=== PATIENT | female | born 1940 | race Caucasian/White ===

== ENCOUNTER 2024-01-04 11:46 | Inpatient (IN) | payer MEDICARE, OTHER ==
--- NOTE | 2024-01-04 12:24 | ED ---
Back Pain HPI - General Chief Complaint: Back Pain/Injury Stated Complaint: Fall Time Seen by Provider: 01/04/24 12:06 Source: patient, family, RN notes reviewed Limitations: no limitations - History of Present Illness Initial Comments: 83-year-old female presenting with back pain status post mechanical fall 3 weeks ago. States she lost her balance and fell onto her buttocks. She did not have immediate pain and was ambulatory after the incident. However, since the fall, patient has had increasing pain in the lower back radiating down the right leg and difficulty ambulating. She also reports that her right foot is numb and tingly. Daughter is present upon examination and states that patient was able to walk without assisting devices before the fall, however began to use a walker after the fall, and has now progressed to difficulty even with the walker. Patient lives with her daughter. They are very concerned about falls at this time. Denies other injuries or complaints at this time. Denies blood thinners. Denies bowel or bladder incontinence. - Related Data Allergies Allergy/AdvReac Type Severity Reaction Status Date / Time Penicillins Allergy Rash/Hives Verified 01/04/24 11:54 Review of Systems ROS Statement: Those systems with pertinent positive or pertinent negative responses have been documented in the HPI. ROS Other: All systems not noted in ROS Statement are negative. Past Medical History Past Medical History: Asthma, Thyroid Disorder Additional Past Medical History / Comment(s): Chronic back pain. History of Any Multi-Drug Resistant Organisms: None Reported Past Surgical History: No Surgical Hx Reported Past Psychological History: No Psychological Hx Reported Smoking Status: Never smoker Past Alcohol Use History: Occasional Past Drug Use History: None Reported General Exam Limitations: no limitations General appearance: alert, in no apparent distress Head exam: Present: atraumatic, normocephalic, normal inspection Eye exam: Present: normal appearance, PERRL, EOMI. Absent: scleral icterus, conjunctival injection, periorbital swelling Respiratory exam: Present: normal lung sounds bilaterally. Absent: respiratory distress, wheezes, rales, rhonchi, stridor Cardiovascular Exam: Present: regular rate, normal rhythm, normal heart sounds. Absent: systolic murmur, diastolic murmur, rubs, gallop, clicks Extremities exam: Present: normal inspection, full ROM, normal capillary refill. Absent: tenderness, pedal edema, joint swelling, calf tenderness Back exam: Present: normal inspection, full ROM, tenderness (Tenderness along lumbar portion of spine), other (Full strength and sensation of bilateral hips. No saddle anesthesia) Neurological exam: Present: alert, oriented X3, CN II-XII intact Psychiatric exam: Present: normal affect, normal mood Skin exam: Present: warm, dry, intact, normal color. Absent: rash Course Vital Signs 01/04/24 01/04/24 01/04/24 11:51 14:10 17:31 Temperature 98.6 F 98 F 98.1 F Pulse Rate 83 70 82 Respiratory 20 18 18 Rate Blood Pressure 123/69 120/80 135/83 O2 Sat by Pulse 96 97 96 Oximetry Medical Decision Making - Medical Decision Making Was pt. sent in by a medical professional or institution ([facility], [facility], urgent care, hospital, or half-way...) When possible be specific @ -No Did you speak to anyone other than the patient for history (EMS, parent, family, police, friend...)? What history was obtained from this source @ -Patient's daughter supplemented history Did you review nursing and triage notes (agree or disagree)? Why? @ -I reviewed and agree with nursing and triage notes Were old charts reviewed (outside hosp., previous admission, EMS record, old EKG, old radiological studies, urgent care reports/EKG's, half-way records)? Report findings @ -No old charts were reviewed Differential Diagnosis (chest pain, altered mental status, abdominal pain women, abdominal pain men, vaginal bleeding, weakness, fever, dyspnea, syncope, headache, dizziness, GI bleed, back pain, seizure, CVA, palpatations, mental health, musculoskeletal)? @ -Differential Musculoskeletal Muscular strain, contusion, ligament sprain, fracture, arthritis, septic arthritis, bursitis, cellulitis, muscle spasm, nerve compression, DVT, arterial occlusion, herpes zoster, electrolyte abnormality, tumor.... This is not meant to be in all inclusive list EKG interpreted by me (3pts min.). @ -None X-rays interpreted by me (1pt min.). @ -X-ray of lower back reveals severe compression deformity of L1 CT interpreted by me (1pt min.). @ -None done U/S interpreted by me (1pt. min.). @ -None done What testing was considered but not performed or refused? (CT, X-rays, U/S, labs)? Why? @ -None What meds were considered but not given or refused? Why? @ -None Did you discuss the management of the patient with other professionals (professionals i.e. , PA, [facility], lab, RT, psych nurse, bilingual social worker, bridge engineer, teacher, third officer, ed case manager)? Give summary @ -I spoke with Rudolph from orthopedics who recommends patient is admitted to medicine with orthopedic consult at this time due to patient's pain poorly controlled and she is at risk for falls and uncomfortable being discharged at this time. I then spoke with Sami from [facility] who accepts admission at this time. Was smoking cessation discussed for >3mins.? @ -No Was critical care preformed (if so, how long)? @ -No Were there social determinants of health that impacted care today? How? (Homeles sness, low income, unemployed, alcoholism, drug addiction, transportation, low edu. Level, literacy, decrease access to med. care, fpc, rehab)? @ -No Was there de-escalation of care discussed even if they declined (Discuss DNR or withdrawal of care, Hospice)? DNR status @ -No What co-morbidities impacted this encounter? (DM, HTN, Smoking, COPD, CAD, Cancer, CVA, ARF, Chemo, Hep., AIDS, mental health diagnosis, sleep apnea, morbid obesity)? @ -None Was patient admitted / discharged? Hospital course, mention meds given and route, prescriptions, significant lab abnormalities, going to OR and other pertinent info. @ -Patient was admitted. Patient was seen and evaluated for low back pain and difficulty ambulating status post mechanical fall 3 weeks ago. Patient is neurovascularly intact. X-ray reveals severe compression deformity of L1. Patient is given IV morphine which improved symptoms. Case was discussed with Rudolph from orthopedics who recommends patient is admitted to medicine with orthopedic consult at this time. I then spoke with Laura from [facility] who accepts admission at this time. Patient and daughter agree to be admitted at this time as they are uncomfortable being discharged as patient is unable to ambulate and they are concerned for fall. Case was discussed with my attending Dr. Smith. Undiagnosed new problem with uncertain prognosis? @ -No Drug Therapy requiring intensive monitoring for toxicity (Heparin, Nitro, Insulin, Cardizem)? @ -No Were any procedures done? @ -No Diagnosis/symptom? @ -Severe compression deformity of L1 Acute, or Chronic, or Acute on Chronic? @ -Acute Uncomplicated (without systemic symptoms) or Complicated (systemic symptoms)? @ -Uncomplicated Side effects of treatment? @ -No Exacerbation, Progression, or Severe Exacerbation? @ -No Poses a threat to life or bodily function? How? (Chest pain, [place], [place], pneumonia, PE, COPD, DKA, ARF, appy, cholecystitis, CVA, Diverticulitis, Homicidal, Suicidal, threat to staff... and all critical care pts) @ -Low likelihood Disposition Clinical Impression: Compression deformity of vertebra Disposition: ADMITTED IP TO THIS HOSP Condition: Stable Referrals: Pravin Tatum DO [Primary Care Provider] - 1-2 days Time of Disposition: 17:22
--- NOTE | 2024-01-04 13:44 | XR ---
EXAMINATION TYPE: XR lumbar spine 2 or 3V DATE OF EXAM: 01/04/2024 COMPARISON: None HISTORY: Low back injury TECHNIQUE: Lumbar spine FINDINGS: There are 5 lumbar-type vertebral bodies. The pedicles are intact. There is severe compress ion deformity of L1. Posterior wall displacement is not evident. Some endplate spurring may be presen t to. Posterior disc space narrowing is present L3-4 L4-5. IMPRESSION: 1. Severe compression deformity L1 of indeterminate age. She wall displacement clearly evident altho ugh some L1-2 mild endplate spurring may be present.
[2024-01-04] MEDS: MORPHINE SULFATE 4 MG/ML SYRINGE IM STA (14:17)
[2024-01-04] MEDS ORDERED: NALOXONE 0.4 MG/ML 1 ML VIAL IV PRN (17:17)
[2024-01-04] MEDS: MORPHINE SULFATE 4 MG/ML SYRINGE IV PRN (18:58)
[2024-01-05] MEDS: ACETAMINOPHEN TAB 325 MG TAB PO PRN (02:13)
--- NOTE | 2024-01-05 10:38 | P.CNOR ---
History of Present Illness - [facility] Consult date: 01/05/24 Requesting physician: Ann Pool Consult reason: other (L1 compression deformity) History of present illness: Patient is an 83-year-old female who presents to the emergency department ye sterday due to difficulty with ambulation back pain. Patient had a fall at home about 3 weeks ago and over the past couple weeks she has had increasing low back pain and difficulty with ambulation. Orthopedics was consulted due to L1 vertebral compression fracture. Patient was seen this morning on 4 S. Patient states a few weeks ago she lost her balance and fell onto her buttocks. Patient denies any immediate pain over the first week. However, over the past couple weeks patient has had increasing pain in the low back with radiation of pain down the right leg and difficulty with ambulation. Patient says she has had even had difficulty ambulating with a walker over the past couple weeks. Patient denies any bowel or bladder incontinence. Patient denies any previous orthopedic spine surgery. Patient states about 40 years ago she did fall landing on the ice and at that point she found out that she did break couple bones in her back. Patient says she's had a hip replacement about 20 years ago. Patient denies any other orthopedic surgical history. Patient denies chest pain, fever, shortness breath, nausea, vomiting, change in vision. Past Medical History Past Medical History: Asthma, Cancer, COPD, Fibromyalgia, Hearing Disorder / Deafness, Thyroid Disorder Additional Past Medical History / Comment(s): Chronic back pain. Hearing aids, Breast cancer, Right side lympnodes removed, History of Any Multi-Drug Resistant Organisms: None Reported Past Surgical History: Breast Surgery, Hysterectomy, Joint Replacement Additional Past Surgical History / Comment(s): Right hip replacement, right side breast cancer and lynphnodes removed, Past Anesthesia/Blood Transfusion Reactions: No Reported Reaction Past Psychological History: No Psychological Hx Reported Smoking Status: Never smoker Past Alcohol Use History: Occasional Past Drug Use History: None Reported Medications and Allergies Home Medications Medication Instructions Recorded Confirmed Type Acetaminophen [Tylenol Extra 1,000 mg PO Q6H PRN 01/04/24 01/04/24 History Strength] Bimatoprost [Lumigan 0.01% Ophth 1 drop LEFT EYE HS 01/04/24 01/04/24 History Soln] Dorzolamide HCl/Pf [Dorzolamide 2% 1 drop LEFT EYE TID 01/04/24 01/04/24 History Eye Drop] Gabapentin [Neurontin] 300 mg PO TID 01/04/24 01/04/24 History Glycopyrrolate/Formoterol Fum 2 puff INHALATION RT-BID 01/04/24 01/04/24 History [Bevespi Aerosphere Inhaler] Levothyroxine Sodium [Synthroid] 88 mcg PO DAILY 01/04/24 01/04/24 History Montelukast [Singulair] 10 mg PO DAILY 01/04/24 01/04/24 History Naproxen Sodium [Aleve] 440 mg PO BID 01/04/24 01/04/24 History Omeprazole [PriLOSEC] 20 mg PO DAILY 01/04/24 01/04/24 History Allergies Allergy/AdvReac Type Severity Reaction Status Date / Time Penicillins Allergy Syncope Verified 01/04/24 18:11 Physical Examination Inspection: Negative for any open fracture, erythema/ecchymosis/open wounds. Sensation: Equal, symmetric, bilaterally intact at the upper and lower extremities. Palpation: Positive for moderate tenderness to the patient over the bilateral SI joints. Nontender to palpation throughout the paravertebral regions on the spine. NTTP throughout rest of exam Range of motion: Patient has full range of motion throughout bilateral upper extremities on exam. Patient does have limited range of motion in the bilateral lower extremities and hip flexion/extension and knee flexion/extension secondary to weakness and stiffness as well as referred pain in the low back. Motor: 4/5 in all major motor groups in bilateral upper extremities. 3/5 in resisted hip flexion/extension bilaterally and knee flexion/extension bilaterally. 4/5 in resisted bilateral ankle dorsi/plantar flexion. 4/5 ini EHL/FHL bilat Neurovascular: Radial pulse intact, 2+ bilaterally. Cap refill under 3 seconds in digits upper extremities Special tests: Negative Homans bilaterally. No clonus bilaterally. Negative Damon bilaterally. Results - Diagnostic results Lumbar AP/lateral x-ray: report reviewed, image reviewed (X-ray lumbar spine is positive for L1 vertebral compression fracture. There is evidence for deg enerative disc disease and spondylosis throughout the spine) Assessment and Plan Assessment: 1. Mechanical low back pain status post fall; L1 vertebral compression fracture Plan: 1. Mechanical low back pain status post fall; L1 vertebral compression fracture - X-ray lumbar spine is positive for L1 vertebral compression fracture. There is evidence for degenerative disc disease and spondylosis throughout the spine. I did discuss the findings of the exam and imaging with my attending, Dr. Ramirez. At this time we are recommending computed tomography scan of the lumbar spine for further evaluation. We are recommending physical therapy and occupational therapy daily. Weightbearing as tolerated with a walker and assist ance as needed. Pain medication as needed. The patient does not improve with PT/OT surgery is an option for stabilization of L1 fracture. We will continue to follow patient during her stay in the hospital. 2. Appreciate medical management 3. Pain management -tylenol 4. DVT prophylaxis - mechanical 5. GI prophylaxis recs 6. PT/OT - weightbearing as tolerated with walker and assistance 7. Encourage incentive spirometer use 8. Appreciate consult Time with Patient: Less than 30
--- NOTE | 2024-01-05 10:44 | CT ---
EXAMINATION TYPE: CT lumbar spine wo con DATE OF EXAM: 01/05/2024 COMPARISON: 01/04/2024 plain film HISTORY: L1 fracture CT DLP: 739.5 mGycm CONTRAST: None TECHNIQUE: CT of the lumbar spine is performed on a spiral scan at 3 mm thick sections. Reconstructed images are performed in the coronal and sagittal planes. FINDINGS: Couple of punctate nodularities are at the right lung base. T11-12: No focal disc herniation or significant disc bulge. No spinal canal stenosis or neural forami nal stenosis. T12-L1: No focal disc herniation or significant disc bulge is evident. No spinal canal stenosis or neural foraminal stenosis is present. L1-L2: There is compression deformity of L1 with approximately 30% loss of anterior vertebral body he ight. This is more focal centrally. Significant posterior wall displacement is not identified. There is some minimal superior and inferior impression on thecal sac. This could be related to spondylolist hesis. No significant adjacent swelling is evident. L2-L3: Minimal disc bulge is present with anterior thecal sac flattening. No AP spinal canal stenosis or neural foraminal stenosis present L3-L4: Minimal disc bulge is present without spinal canal stenosis. Facet hypertrophy and ligamentum flavum laxity is present while posterior lateral thecal sac compression. L4-L5: Broad-based disc bulge has a moderate anterior thecal sac compression. No AP spinal canal sten osis. Facet hypertrophy and ligamentum flavum laxity is present. Neural foramen appear to have modera te bilateral foraminal narrowing. L5-S1: No focal disc herniation or significant disc bulge is evident. No spinal canal stenosis or n eural foraminal stenosis is present. Facet hypertrophy is present. IMPRESSION: 1. Compression deformity L1 no significant posterior wall displacement is evident. Very minimal spond ylolisthesis are may be present. 2. Disc bulging present L3-4 through L4-5 without spinal canal stenosis. 3. Moderate L4-5 Foraminal stenosis
[2024-01-05] MEDS: IPRATROPIUM 0.5 MG/2.5 ML NEBU INHALATION SCH (11:55)
[2024-01-05] MEDS: LEVOTHYROXINE 88 MCG TAB PO SCH (13:00)
[2024-01-05] MEDS: GABAPENTIN 300 MG CAP PO SCH (13:00)
[2024-01-05] MEDS: DORZOLAMIDE HCL 2% DROPS 10 ML BTL LEFT EYE SCH (16:10)
--- NOTE | 2024-01-05 16:11 | P.HPIM ---
History of Present Illness H&P Date: 01/05/24 Chief Complaint: Fall/back pain 83-year-old female, history of hypothyroidism, COPD/asthma, fibromyalgia, hearing loss, GERD, presents with her daughter after a fall from standing about a week ago she states that she bent over to help her dog and she had increased pain in her back and ever since she has had severe pain in her back which brought her to the emergency department. She states she is unable to ambulate due to the pain. She states that he continues to get worse and worse. She states that her legs are difficult to move secondary to the pain. She states that she continues to have increasing back pain as well as some leg pain. She denies any bowel or bladder issues. She denies any numbness or tingling at this time. She states fairly severe pinpoint tenderness over the midportion of her back At the top of the lumbar spine. X-ray of the lumbar spine completed upon arrival to the ED reveals severe compression deformity L1 of indeterminate age. L1-L2 mild endplate spurring might be present, posterior disc space narrowing at L3-4, L4-5 CT of the lumbar spine reveals compression deformity L1 with no significant posterior wall displacement. Very minimal spondylolisthesis may be present. Disc bulging present L3-4 through L4-5 without spinal canal stenosis. Moderate L4-5 foraminal stenosis Review of Systems REVIEW OF SYSTEMS: CONSTITUTIONAL: No fever, no malaise, no fatigue. HEENT: No recent visual problems or hearing problems. Denied any sore throat. CARDIOVASCULAR: No chest pain, orthopnea, PND, no palpitations, no syncope. PULMONARY: No shortness of breath, no cough, no hemoptysis. GASTROINTESTINAL: No diarrhea, no nausea, no vomiting, no abdominal pain. NEUROLOGICAL: No headaches, no weakness, no numbness. HEMATOLOGICAL: Denies any bleeding or petechiae. GENITOURINARY: Denies any burning micturition, frequency, or urgency. MUSCULOSKELETAL/RHEUMATOLOGICAL: Denies any joint pain, swelling, or any muscle pain. ENDOCRINE: Denies any polyuria or polydipsia. The rest of the 14-point review of systems is negative. Past Medical History Past Medical History: Asthma, Cancer, COPD, Fibromyalgia, Hearing Disorder / Deafness, Thyroid Disorder Additional Past Medical History / Comment(s): Chronic back pain. Hearing aids, Breast cancer, Right side lympnodes removed, History of Any Multi-Drug Resistant Organisms: None Reported Past Surgical History: Breast Surgery, Hysterectomy, Joint Replacement Additional Past Surgical History / Comment(s): Right hip replacement, right side breast cancer and lynphnodes removed, Past Anesthesia/Blood Transfusion Reactions: No Reported Reaction Past Psychological History: No Psychological Hx Reported Smoking Status: Never smoker Past Alcohol Use History: Occasional Past Drug Use History: None Reported Medications and Allergies Home Medications Medication Instructions Recorded Confirmed Type Acetaminophen [Tylenol Extra 1,000 mg PO Q6H PRN 01/04/24 01/04/24 History Strength] Bimatoprost [Lumigan 0.01% Ophth 1 drop LEFT EYE HS 01/04/24 01/04/24 History Soln] Dorzolamide HCl/Pf [Dorzolamide 2% 1 drop LEFT EYE TID 01/04/24 01/04/24 History Eye Drop] Gabapentin [Neurontin] 300 mg PO TID 01/04/24 01/04/24 History Glycopyrrolate/Formoterol Fum 2 puff INHALATION RT-BID 01/04/24 01/04/24 History [Bevespi Aerosphere Inhaler] Levothyroxine Sodium [Synthroid] 88 mcg PO DAILY 01/04/24 01/04/24 History Montelukast [Singulair] 10 mg PO DAILY 01/04/24 01/04/24 History Naproxen Sodium [Aleve] 440 mg PO BID 01/04/24 01/04/24 History Omeprazole [PriLOSEC] 20 mg PO DAILY 01/04/24 01/04/24 History Allergies Allergy/AdvReac Type Severity Reaction Status Date / Time Penicillins Allergy Syncope Verified 01/04/24 18:11 Physical Exam Vitals: Vital Signs Temp Pulse Pulse Resp BP BP Pulse Ox 01/05/24 07:28 98.0 F 72 18 136/64 94 L 01/05/24 02:17 97.7 F 100 18 146/82 94 L 01/04/24 20:09 97.8 F 82 18 126/74 96 01/04/24 18:54 97.7 F 79 18 125/79 96 01/04/24 17:31 98.1 F 82 18 135/83 96 01/04/24 14:10 98 F 70 18 120/80 97 01/04/24 11:51 98.6 F 83 20 123/69 96 Intake and Output 01/04/24 01/05/24 01/05/24 22:59 06:59 14:59 Other: Voiding Method Bedside Commode # Voids 2 Weight 63.503 kg Thrombosis Risk Factor Assmnt - Choose All That Apply Any of the Below Risk Factors Present?: No Other Risk Factors: Yes Each Risk Factor Represents 3 Points: Age 75 years or older Other congenital or acquired thrombophilia - If yes, enter type in comment: No Thrombosis Risk Factor Assessment Total Risk Factor Score: 3 Thrombosis Risk Factor Assessment Level: Moderate Risk Assessment and Plan Assessment: 1. L1 compression fracture --CT of the spine is completed and reveals near complete height loss and repulsion 2 to 3 mm causing moderate canal stenosis Patient has been evaluated by orthopedic surgery and surgical intervention in the form of L1 open treatment with stabilization T12-L2 with L1 kyphoplasty due to her increasing pain and inability to perform ADLs when she is normally independent. Pt states she is in intense pain and wants the surgery as she is miserable. She understands the risks as they were discussed with her and her daughter and they are willing to assume these risks and all the risks of surgery. -- Surgery tentatively scheduled for 01/07/2024 2. Intractable back pain; patient remains on IV morphine sulfate 4 mg every 4 hours as needed; Neurontin 300 mg 3 times daily; will add [place] 10 mg every 6 hours as needed for long-term pain control -- PT OT is consulted 3. Inability to ambulate related to compression fractures; PT OT on board 4. Hypothyroidism; levothyroxine 88 mcg daily 5. Asthma/COPD; not in exacerbation; continue home inhaler therapy; Singulair 10 mg daily DVT prophylaxis; SCDs/heparin CODE STATUS; full code
[2024-01-05] MEDS: diphenhydrAMINE 25 MG CAP PO PRN (18:05)
[2024-01-05] MEDS: FORMOTEROL FUMARATE 20 MCG/2 ML NEBU INHALATION SCH (20:36)
[2024-01-05] MEDS: LATANOPROST 0.005% OPHTH DROPS 2.5 ML BTL LEFT EYE SCH (21:03)
[2024-01-05] MEDS: HEPARIN SODIUM,PORCINE 5,000 UNIT/ML 1 ML VIAL SQ SCH (21:03)
[2024-01-06] MEDS: HYDROcodone/APAP 10-325MG 1 EACH TAB PO PRN (00:59)
--- NOTE | 2024-01-06 08:03 | P.PN ---
Subjective Progress Note Date: 01/06/24 Principal diagnosis: L1 Fracture Pt s/e this AM. She is sitting up eating breakfast. She states pain in her back that is intense and unrelenting and she cannot get up due to the pain. She states continued pain in her legs and pain with movement. She has not been up due to the pain she states. She denies any perineal numbness/tingling. She states no f/c/sob/cp. She states she is ready for surgery tomorrow. Objective - Vital Signs Vital signs: Vital Signs Temp 97.4 F L 01/06/24 00:46 Pulse 90 01/06/24 00:46 Resp 17 01/06/24 00:46 BP 119/79 01/06/24 00:46 Pulse Ox 95 01/06/24 00:46 FiO2 Intake & Output 01/05/24 01/06/24 01/06/24 18:59 06:59 18:59 Intake Total 120 Output Total 300 Balance -180 Intake: Oral 120 Output: Urine 300 Other: Voiding Method Bedside Commode Bedside Commode # Voids 1 - Exam Physical Exam: -Patient is alert and oriented 3 appears well-nourished well-hydrated is in no acute distress. They do not appear septic. -There is TTP midline T and L spine L1 and T12 region. There is TTP of the L5/S1 junction as well. No TTP C spine. -Upper extremities show 4+ out of 5 strength in all major muscle groups. -Lower extremities with 3+ out of 5 strength in all major muscle groups this is due mostly to pain at this time -There is [FROM] that is [painless] of the b/l UE and LE in all major joints. Neg log roll hips b/l. Neg SLR b/l. -They are intact to light touch sensation in C5 to T1 and L2 to S1 nerve distribution. -DTR [2]/4 all upper and lower extremities -Patient has palpable distal pulses all 4 ext -Compartments are soft and compressible. -Patient shows a negative Mario's [-Neg Hoffmans b/l] [-Neg Clonus b/l] [-Neg babinski b/l] Cranial nerves II through XII are grossly intact. Post Ballotment Lumbar spine Assessment and Plan (1) Burst fracture of lumbar vertebra Current Visit: Yes Status: Acute Code(s): S32.001A - STABLE BURST FRACTURE OF UNSP LUMBAR VERTEBRA, INIT SNOMED Code(s): 249686990 (2) Low back pain Current Visit: Yes Status: Acute Code(s): M54.50 - LOW BACK PAIN, UNSPECIFIED SNOMED Code(s): 086422771 (3) Leg weakness, bilateral Current Visit: Yes Status: Acute Code(s): R29.898 - OTH SYMPTOMS AND SIGNS INVOLVING THE MUSCULOSKELETAL SYSTEM SNOMED Code(s): 1460660 Plan: -Appreciate database consultant and team management. -NPO @ [place] -Plan for ORIF L1 with stabilization T12-L2 (1 hr case) tomorrow after noon. -Ancef 2g for OR -TXA 2 g for OR -Activity: Cont with bed exercises as able. -Pain control: Adjust accordingly, go low on sedative and narcotic meds due to age -Meds: [reviewed] -GI ppx: senna, Miralax -DVT PPX: Mech only due to surgery tomorrow -Hygiene: Maintain -Encourage IS 10x/hr -Dispo: [Pending]
[2024-01-06] MEDS: MONTELUKAST 10 MG TAB PO SCH (08:48)
[2024-01-06 09:19] LABS: HCT 39.3 % (37.2-46.3); HGB 12.5 g/dL (12.0-15.0); MCH 32.5 pg (27.0-32.0); MCHC 31.8 g/dL (32.0-37.0); MCV 102.1 FL (80.0-97.0); Mean Platelet Volume 10.5 FL (9.5-12.2); NRBC Per 100 WBC 0 X 10*3/uL (0.00-0.01); Platelet Count 368 X 10*3/uL (140-440); RBC 3.85 X 10*6/uL (4.10-5.20); RDW 15.7 % (11.5-14.5); WBC 18.18 X 10*3/uL (4.50-10.00)
[2024-01-06 09:25] LABS: Calcium 9.6 mg/dL (8.7-10.3); Carbon Dioxide 26.1 mmol/L (21.6-31.8); Chloride 102 mmol/L (96-109); Glucose 106 mg/dL (70-110); Potassium 4.8 mmol/L (3.5-5.5); Sodium 138 mmol/L (135-145)
[2024-01-06 11:20] LABS: Basophils # (M) 0 X 10*3/uL (0.00-0.10); Eosinophils # (M) 0.18 X 10*3/uL (0.04-0.35); Lymphocytes # (M) 13.27 X 10*3/uL (0.90-5.00); Metamyelocytes % 1 % (0-0); Monocytes # (M) 0.73 X 10*3/uL (0.20-1.00); Neutrophils # (M) 3.82 X 10*3/uL (1.80-7.70); Neutrophils % (M) 21 %
--- NOTE | 2024-01-06 11:51 | XR ---
EXAMINATION TYPE: XR chest 1V DATE OF EXAM: 01/06/2024 COMPARISON: None INDICATION: Leukocytosis TECHNIQUE: Single frontal view of the chest is obtained. FINDINGS: The heart size is normal. The pulmonary vasculature is normal. There is some mild infiltrate about the left diaphragm. A more focal area or summation densities at t he left base laterally measuring approximately 0.8 cm. Follow-up is recommended. Atelectasis, pneumon ia, or nodule considered. IMPRESSION: 1. Nodular density with adjacent infiltrate right lung base. Correlate for atelectasis or pneumonia. Underlying lung nodules not excluded. Follow-up is recommended.
[2024-01-06] MEDS: FAMOTIDINE 20 MG/2 ML VIAL IV SCH (22:05)
[2024-01-07 08:48] LABS: Blood Urea Nitrogen 20.3 mg/dL (9.0-27.0); Calcium 8.6 mg/dL (8.7-10.3); Carbon Dioxide 24.6 mmol/L (21.6-31.8); Chloride 101 mmol/L (96-109); Glucose 91 mg/dL (70-110); Potassium 4.8 mmol/L (3.5-5.5); Sodium 136 mmol/L (135-145)
--- NOTE | 2024-01-07 11:28 | P.PN ---
Subjective Progress Note Date: 01/07/24 Principal diagnosis: L1 compression fracture Patient sen this morning. Patient has remained NPO since MN. She states she continues to have constant sharp lumbar pain that is exacerbated with any movement. She is looking forward to her procedure scheduled for later today, L1 ORIF with T12-L2 stabilization. Objective - Vital Signs Vital signs: Vital Signs Temp 98.0 F 01/07/24 07:50 Pulse 86 01/07/24 07:50 Resp 16 01/07/24 07:50 BP 124/80 01/07/24 07:50 Pulse Ox 93 L 01/07/24 07:50 FiO2 Intake & Output 01/06/24 01/07/24 01/07/24 18:59 06:59 18:59 Intake Total 680 Output Total 500 Balance 180 Intake: Oral 680 Output: Urine 500 Other: Voiding Method Bedside Commode Bedside Commode # Voids 1 4 # Bowel Movements 0 - Labs CBC & Chem 7: 01/06/24 05:42 01/07/24 04:31 Labs: Abnormal Lab Results - Last 24 Hours (Table) 01/06/24 01/06/24 01/06/24 Range/Units 05:42 05:42 05:42 WBC 18.18 H (4.50-10.00) X 10*3/uL RBC 3.85 L (4.10-5.20) X 10*6/uL MCV 102.1 H (80.0-97.0) FL MCH 32.5 H (27.0-32.0) pg MCHC 31.8 L (32.0-37.0) g/dL RDW 15.7 H (11.5-14.5) % Lymphocytes # (Manual) 13.27 H (0.90-5.00) X 10*3/uL BUN/Creatinine Ratio 40.00 H (12.00-20.00) Ratio C-Reactive Protein 2.50 H (0.00-0.80) mg/dL
[2024-01-07 11:35] LABS: INR 0.9 (<1.2); Partial Thromboplastin Time 23.1 sec (22.0-30.0); Prothrombin Time 9.9 sec (10.0-12.5)
[2024-01-07] MEDS: IV FLUID CONTINUATION 1,000 ML IV ONE ×2 (11:55→16:27)
--- NOTE | 2024-01-07 12:14 | P.PN ---
Progress Note - Text Progress Note Date: 01/07/24 Spine Surgery Clinical and Risk Review Christiane Chapa is a 83 yo female presenting for evaluation of Low back pain, severe, inability to ambulate. It was my pleasure to have seen and examined Christiane Chapa. In our visit today we have had a chance to go over subjective complaints, physical examination findings and treatments including the natural course history without intervention and various interventional options. The patients imaging demonstrates L1 burst fracture AO type A4, due to progressive fracture from L1 compression deformity with kyphosis and retropulsion. On physical exam, Christiane demonstrates TTP midline of the T12 L1 region as well as splaying of the SP at this level along with TTP of the paraspinal muscles in the lumbar spine and lower lumbar region. She has not been able to ambulate or get up in the hospital due to pain in her back and her legs being weak. I have explained to the patient that as their condition progresses it will cause further neurological deficits and eventual paralysis. Based on the patients imaging, physical exam, and the rapid progression and disabling nature of their symptoms, at this time I recommend surgery in the form or a: L1 open treatment with T12-L2 stabilization. I discussed the risk and benefits of this procedure at length with Christiane Chapa. The patient and her daughter at bedside agreed to considered pursuing the procedure abovementioned. Prior to surgery, she should follow up with her PCP (Cardio, ID, IM etc) for clearance. Questions were invited and answered, and the patient wishes to proceed as outlined below. Currently, I am recommendin. L1 open treatment with T12-L2 stabilization 2. Follow up with PCP for surgical clearance 3. Review of surgical risks and benefits as well as an educational packet on the proposed surgical procedure. Risks: All surgical procedures come with inherent risks, including those related to positioning, anesthesia, intraoperative findings, and postoperative complicat ions. It is important to understand that surgery does not come with any guarantee of a successful outcome as complications and adverse events are always possible. The patient was given a handout in office today discussing the surgical procedure and risks associated with the intervention, both of which were discussed with the patient. These risks include but are not limited to the following: * Experiencing same, different or even worse symptoms in back, neck, arms, or legs compared to before surgery. * Requiring further surgery or other forms of treatment presently or at some time in the future at same or other levels of the intended spine surgery. * On an extreme but fortunately relatively rare basis severe complication such as blindness, stroke, heart attack, temporary and/or permanent nerve injury, paralysis, coma, or may occur, sometimes without known explanation. * Surgical complications may include but are not limited to risk of infection, fluid accumulation in the surgical dissection site, including a seroma or hematoma, that requires additional surgery, wound drainage, bleeding, new numbness or weakness, vision changes/loss, spinal fluid leakage, non-healing and/or infected incision, headaches, difficulty or inability to swallow, hoarseness, hemopneumothorax, pneumothorax, impotence, retrograde ejaculation, vaginal dryness; injury to nerves, spinal cord, blood vessels, lymphatics or other vital organs (i.e., bowel injury, injury to the great vessels); heterotopic bone formation; complications related to the hardware such as screws, rods, cages including misplaced hardware, device failure, instrumentation at the wrong spine level, hardware fracture/breakage, or hardware loosening; vertebral failure of the spinal column above or below the newly placed hardware; retained surgical instrumentations or devices and the need for further surgery. * Medical risks of the planned spine surgery include but are not limited to generalized Infections to the whole body or local areas outside of the surgical site (sepsis), heart attack, bleeding, anaphylaxis, meningitis, seizure, epilepsy, hearing loss, burn gray, laceration of the head or other areas of the body, bruising, hypersensitivity of the skin, bladder over distension; allergic reaction; shoulder injury related to positioning; fat, blood and air clots to other areas of the body like heart, lungs, brain; failure of internal organs such as lungs, kidneys, liver and excessive bleeding. If blood transfusions are necessary, note that transfusions may cause intolerance reactions such as anaphylaxis or other complex reactions. * Despite best efforts, the results of spine surgery might not heal in terms of bone, soft tissues such as skin, fascia, ligaments, and joints. Additionally, in order to achieve best possible results, spine surgery may be carried out beyond the initially planned levels and involve decompression, fusion including insertion of hardware at levels other than the original intended area of surgical interest change some portions of the procedure in order to ensure the best possible outcomes. * With spine surgery and spinal fusion, there are different off label uses of instrumentation (devices, implants and hardware) as well as biological substances (bone morphogenic proteins, demineralized bone matrix) as well as using extra bone from allograft sources (i.e. cadaver bone) or autograft (iliac crest bone, ribs, or the spine itself). The patient has been given information about these practices and their inherent risks and benefits. The patient has had a chance to review all the listed information, has been given print outs detailing this information, and has had all his/her questions answered to their satisfaction. It was my pleasure to have seen and examined Christiane Chapa. In our visit today we have had a chance to go over my understanding of our patient's current condition, the natural course history without intervention and various interventional options. Questions were invited and answered, and the patient wishes to proceed as outlined above. I have seen and examined the patient for 25 minutes and we have spent more than 50% of the time in repeat and detailed counseling about the patient's condition, its natural course history with out and as much as can be predicted with surgery and re-review of various surgical treatment options. In conclusion, Christiane Chapa and her daughter requested we proceed with the above suggested surgery and are willing to accept risks and limitations of the suggested surgery as nature of the disease process and our best attempts at treatment for the condition. Thank you again for allowing us to be part of your patient's care. Please don't hesitate to contact me if you have any further questions. Signed and authenticated by: Jaret [facility] [address] [facility], [address] [address]
[2024-01-07] MEDS: LACTATED RINGERS 1,000 ML BAG IV STA (12:45)
[2024-01-07] MEDS: ONDANSETRON 4 MG/2 ML VIAL IVP STA (13:12)
[2024-01-07] MEDS: DEXAMETHASONE SOD PHOSPHATE 4 MG/ML 1 ML VIAL IVP STA (13:14)
--- NOTE | 2024-01-07 13:18 | P.PN ---
Subjective Progress Note Date: 01/06/24 83-year-old female, history of hypothyroidism, COPD/asthma, fibromyalgia, hearing loss, GERD, presents with her daughter after a fall from standing about a week ago she states that she bent over to help her dog and she had increased pain in her back and ever since she has had severe pain in her back which brought her to the emergency department. She states she is unable to ambulate due to the pain. She states that he continues to get worse and worse. She states that her legs are difficult to move secondary to the pain. She states that she continues to have increasing back pain as well as some leg pain. She denies any bowel or bladder issues. She denies any numbness or tingling at this time. She states fairly severe pinpoint tenderness over the midportion of her back At the top of the lumbar spine. X-ray of the lumbar spine completed upon arrival to the ED reveals severe compression deformity L1 of indeterminate age. L1-L2 mild endplate spurring might be present, posterior disc space narrowing at L3-4, L4-5 CT of the lumbar spine reveals compression deformity L1 with no significant posterior wall displacement. Very minimal spondylolisthesis may be present. Disc bulging present L3-4 through L4-5 without spinal canal stenosis. Moderate L4-5 foraminal stenosis 01/06/2024 Patient is seen and evaluated in room at bedside; somewhat quiet; reports he has been recommended surgical intervention by orthopedic surgery Vital signs are reviewed and stable with temperature of 97.4, pulse 90, respirations 17 and blood pressure of 119/79 --patient with burst fracture of lumbar vertebra with bilateral leg weakness and intractable low back pain -- Patient is scheduled for ORIF of L1 with stabilization T12-L1 tomorrow morning -We will continue with current management; PT/OT evaluation after surgical intervention Objective - Vital Signs Vital signs: Vital Signs Temp 98.4 F 01/06/24 07:15 Pulse 71 01/06/24 07:15 Resp 16 01/06/24 07:15 BP 107/69 01/06/24 07:15 Pulse Ox 91 L 01/06/24 07:15 FiO2 Intake & Output 01/05/24 01/06/24 01/06/24 18:59 06:59 18:59 Intake Total 120 300 Output Total 300 Balance -180 300 Intake: Oral 120 300 Output: Urine 300 Other: Voiding Method Bedside Commode Bedside Commode # Voids 1 - Exam - Constitutional General appearance: Present: average body habitus, cooperative, no acute distress - EENT Eyes: Present: anicteric sclerae, EOMI, PERRLA, normal appearance ENT: Present: hearing grossly normal, normal oropharynx Ears: bilateral: normal - Neck Neck: Present: normal ROM. Absent: lymphadenopathy, rigidity, thyromegaly Carotids: negative: bruit present Thyroid: bilateral: normal size, negative: enlarged, nodule - Respiratory Respiratory: bilateral: CTA, negative: rales, rhonchi, wheezing - Cardiovascular Rhythm: regular Heart sounds: normal: S1, S2 Abnormal Heart Sounds: Absent: systolic murmur, diastolic murmur - Gastrointestinal General gastrointestinal: Present: normal bowel sounds, soft. Absent: distended, organomegaly, tenderness - Genitourinary Genitourinary Comment(s): deferred - Integumentary Integumentary: Present: normal turgor. Absent: jaundiced, rash, ulcer - Neurologic Neurologic: Present: CNII-XII intact. Absent: focal deficits - Musculoskeletal Musculoskeletal: Present: gait normal, strength equal bilaterally - Psychiatric Psychiatric: Present: A&O x's 3, appropriate affect, intact judgment & insight - Labs CBC & Chem 7: 01/06/24 05:42 01/07/24 04:31 Labs: Abnormal Lab Results - Last 24 Hours (Table) 01/06/24 01/06/24 Range/Units 05:42 05:42 WBC 18.18 H (4.50-10.00) X 10*3/uL RBC 3.85 L (4.10-5.20) X 10*6/uL MCV 102.1 H (80.0-97.0) FL MCH 32.5 H (27.0-32.0) pg MCHC 31.8 L (32.0-37.0) g/dL RDW 15.7 H (11.5-14.5) % BUN/Creatinine Ratio 40.00 H (12.00-20.00) Ratio Assessment and Plan Assessment: 1. L1 compression fracture --CT of the spine is completed and reveals near complete height loss and repulsion 2 to 3 mm causing moderate canal stenosis Patient has been evaluated by orthopedic surgery and surgical intervention in the form of L1 open treatment with stabilization T12-L2 with L1 kyphoplasty due to her increasing pain and inability to perform ADLs when she is normally independent. Pt states she is in intense pain and wants the surgery as she is miserable. She understands the risks as they were discussed with her and her daughter and they are willing to assume these risks and all the risks of surgery. -- Surgery tentatively scheduled for 01/07/2024 2. Intractable back pain; patient remains on IV morphine sulfate 4 mg every 4 hours as needed; Neurontin 300 mg 3 times daily; will add [place] 10 mg every 6 hours as needed for long-term pain control -- PT OT is consulted 3. Inability to ambulate related to compression fractures; PT OT on board 4. Hypothyroidism; levothyroxine 88 mcg daily 5. Asthma/COPD; not in exacerbation; continue home inhaler therapy; Singulair 10 mg daily DVT prophylaxis; SCDs/heparin CODE STATUS; full code
[2024-01-07] MEDS ORDERED: fentaNYL (PF) 50 MCG/ML 2 ML AMP ONE (13:32)
[2024-01-07] MEDS ORDERED: PHENYLEPHRINE 10 MG/ML VIAL ONE (13:32)
[2024-01-07] MEDS ORDERED: ROCURONIUM 10 MG/ML (5 ML VIAL) IV ONE (13:32)
[2024-01-07] MEDS ORDERED: TRANEXAMIC 1,000 MG/100ML-NACL PREMIX BAG ONE (13:32)
[2024-01-07] MEDS ORDERED: PROPOFOL 10 MG/ML 20 ML VIAL IV ONE (13:32)
[2024-01-07] MEDS ORDERED: SUCCINYLCHOLINE CHLORIDE 200 MG/10 ML VIAL IV ONE (13:32)
[2024-01-07] MEDS ORDERED: NEOSTIGMINE 1 MG/ML 10 ML VIAL ONE (13:32)
[2024-01-07] MEDS ORDERED: GLYCOPYRROLATE 0.2 MG/ML 2 ML VIAL ONE (13:32)
[2024-01-07] MEDS ORDERED: LIDOCAINE 1% INJ 10MG/ML (20 ML MDV) ONE (13:32)
[2024-01-07] MEDS: SODIUM CHLORIDE 0.9% 100 ML with ceFAZolin 2,000 MG IV ONE ×2 (13:37→13:55)
[2024-01-07] MEDS: IOPAMIDOL M200 10 ML VIAL MISCELLANE ONE (14:01)
[2024-01-07] MEDS: LIDOCAINE 2%-EPI 1:100,000 20 ML VIAL SQ ONE (14:01)
[2024-01-07] MEDS: THROMBIN (BOVINE) 5,000 UNIT VIAL TOPICAL ONE (14:01)
[2024-01-07] MEDS: BUPIVACAINE (PF) 0.5% 30 ML VIAL SQ ONE (14:01)
[2024-01-07] MEDS: TRANEXAMIC ACID 1,000 MG in SODIUM CHLORIDE 0.9% 100 ML IVPB ONE (14:07)
--- NOTE | 2024-01-07 15:24 | P.OP ---
Date of Procedure: 01/07/24 Preoperative Diagnosis: 1. L1 BURST COMPRESSION FRACTURE AO TYPE A3/4 2. LOW BACK PAIN 3. FALL FROM STANDING 4. OSTEOPOROSIS 5. COMPLEX MEDICAL PATIENT Postoperative Diagnosis: 1. L1 BURST COMPRESSION FRACTURE AO TYPE A3/4 2. LOW BACK PAIN 3. FALL FROM STANDING 4. OSTEOPOROSIS 5. COMPLEX MEDICAL PATIENT Procedure(s) Performed: 1. OPEN TREATMENT L1 FRACTURE 2. T12-L3 STABILIZATION AND INSTRUMENTATION 3. L1 BIOPSY WITH CEMENT STABILIZATION AND KYPHOPLASTY USE OF IONM ALL SCREWS TESTING > 20 mA Implants: CHASE EVEREST RODS AND SCREWS CHASE CEMENT Anesthesia: GETA Surgeon: Jaret Ramirez Architectural Administrative Assistant #1: Rudolph Kinsey (WAS PRESENT AND ASSISTED WITH ALL ASPECTS OF THE CASE FROM POSITION TO DRESSING PLACEMENT) Estimated Blood Loss (ml): 75 IV fluids (ml): 1,100 Urine output (ml): 0 Pathology: other (L1 VERTEBRAL BODY BIOPSY) Condition: stable Disposition: PACU Indications for Procedure: Christiane Chapa is a 83 yo female presenting for evaluation of Low back pain, severe, inability to ambulate. It was my pleasure to have seen and examined Christiane Chapa. In our visit today we have had a chance to go over subjective complaints, physical examination findings and treatments including the natural course history without intervention and various interventional options. The patients imaging demonstrates L1 burst fracture AO type A4, due to progressive fracture from L1 compression deformity with kyphosis and retropulsion. On physical exam, Christiane demonstrates TTP midline of the T12 L1 region as well as splaying of the SP at this level along with TTP of the paraspinal muscles in the lumbar spine and lower lumbar region. She has not been able to ambulate or get up in the hospital due to pain in her back and her legs being weak. I have explained to the patient that as their condition progresses it will cause further neurological deficits and eventual paralysis. Based on the patients imaging, physical exam, and the rapid progression and disabling nature of their symptoms, at this time I recommend surgery in the form or a: L1 open treatment with T12-L2 stabilization. I discussed the risk and benefits of this procedure at length with Christiane Chapa. The patient and her daughter at bedside agreed to considered pursuing the procedure abovementioned. Prior to surgery, she should follow up with her PCP (Cardio, ID, IM etc) for clearance. Questions were invited and answered, and the patient wishes to proceed as outlined below. Currently, I am recommendin. L1 open treatment with T12-L2 stabilization Description of Procedure: OPEN TREATMENT L1 FRACTURE; T11-L3 STABILIZATION (CYNDI) The patient was seen and examined in the preoperative area. All preoperative protocols were followed. Informed consent was obtained, risks and benefits of the procedure were discussed at length. Risks including bleeding infection damage to the surrounding tissue and risk of reoperation were discussed with the patient. Risk of anesthesia up to and including was discussed with the patient. These are outlined in the risk review. They were willing to accept these risks and all of the risks of surgery. The patient was given a weight- based dose of antibiotics in the form of 2 g Ancef. The patient was seen and evaluated by the anesthesia team who deemed them fit for surgery. The site was marked, the patient was willing to proceed with the procedure. The patient was transferred to the operative suite by the Department of anesthesia. They were then drifted off to sleep by the department anesthesia and GETA was performed. The patient tolerated this well. [Pabon catheter was placed by nursing staff, atraumatically]. Once confirmation of lines and ventilation the patient was transferred to a [prone Jose Maria table very carefully]. All bony prominences including wrists, elbows, axilla, chest, hips, and thighs, and feet were padded very well. Special attention was paid to the genitalia and these were padded accordingly. SCDs were placed on bilateral lower extremities and were connected. Arms were well padded and placed [on arm boards up and out in the 90/90 position]. Once in position, again we confirmed good ventilation capabilities and that lines were running appropriately. The patient's thoracolumbar spine was then exposed. 1010s were placed outlining the incision site. Standard alcohol was used to clean the incision site and allowed to dry. C-arm was used to needle localize and then biomark the patient and confirm level for incision which was marked with a skin marker. Operative briefing was performed with all teams and everyone in agreement to proceed. The patient was then prepped and draped in a normal sterile fashion. Timeout was then performed and all parties were in agreement with the procedure to be performed. Skin was then made over the PSIS for the pins for the trackers; these were drilled into the PSIS stabilized and the track was secured to this. It was then draped in a 3-D C-arm and was obtained from the area of interest for Chase navigation. Once then was registered and confirmed to be accurately navigated Jamshidi was placed into bilateral pedicles at T11 followed by a wire and Jamshidi was removed we then placed him into L2 bilaterally and then placed wires and the void. L2 also was fractured we noted on the spin and so we elected for stable vertebral body purchase in L3 and placed wires via navigated jamshidi bilaterally. AP and lateral imaging confirmed good placement of wires. We then navigated screws over these wires into position in the levels indicated. The screws were tested and all tested above 20 mA. AP and lateral confirmed good placement of screws. We then proceeded with biopsy and kyphoplasty of L1. Jamshidi was introduced into L1 to advance the vertebral body. We then performed a biopsy of the vertebral body using a biopsy needle. We then performed drilling and curettage and balloon kyphoplasty of L1. We did obtain an increase in the superior endplate that was reduced 3-4 mm back in the position. We then fill this void with cement. All screws were then cemented into position through the cement cannulas. The patient remained stable throughout cementation and there was no cement extravasation angiogram a myelogram. We then sized and selected rods for the area rods were then placed subfascially through the tulips of each screw. Set screws were then placed and all screws to secure the rods bilaterally. Set screws were then final tightened and tabs broken off the screws. Final imaging confirmed good placement of rods and screws, good reduction and stabilization. We irrigated the wounds thoroughly with normal sterile saline. The deep fascia was closed with 0 Vicryl superficial subcu closed with 2-0 Vicryl and skin closed with skin jessy the wound edges approximated very well. wounds were then cleaned and sterilely dressed without dressings. The patient was transferred back to their hospital bed atraumatically. Patient was then awakened and extubated by the department of anesthesia having tolerated the procedure very well with no complications. They were transferred to the postoperative care unit in stable condition.
[2024-01-07] MEDS ORDERED: SENNOSIDES-DOCUSATE SODIUM 1 EACH TAB PO PRN (15:27)
--- NOTE | 2024-01-07 15:27 | FL ---
EXAMINATION TYPE: FL guidance operating room, XR lumbar spine 2 or 3V Intraoperative/procedural fluor oscopic services were provided. Total fluoroscopy time is 1 minute 7 seconds with a total of 4 submit yessica images to PACS. Please see the operative/procedural note for further details. DAP: 2944.63 cGycm2
[2024-01-07] MEDS: HYDROmorphone 0.5 MG/0.5 ML SYRINGE IVP PRN ×2 (15:47→16:19)
[2024-01-07] MEDS: fentaNYL (PF) 50 MCG/ML 2 ML AMP IVP PRN (16:41)
--- NOTE | 2024-01-07 21:20 | P.PN ---
Subjective i came to see the and she was in surgery , we wiil follow up Objective - Vital Signs Vital signs: Vital Signs Temp 98.3 F 01/07/24 11:56 Pulse 80 01/07/24 11:56 Resp 18 01/07/24 11:56 BP 135/72 01/07/24 11:56 Pulse Ox 95 01/07/24 11:56 FiO2 Intake & Output 01/06/24 01/07/24 01/07/24 18:59 06:59 18:59 Intake Total 680 Output Total 500 Balance 180 Intake: Oral 680 Output: Urine 500 Other: Voiding Method Bedside Commode Bedside Commode Bedside Commode # Voids 1 4 # Bowel Movements 0 - Labs CBC & Chem 7: 01/06/24 05:42 01/07/24 04:31 Labs: Abnormal Lab Results - Last 24 Hours (Table) 01/06/24 01/07/24 01/07/24 Range/Units 05:42 04:31 10:37 PT 9.9 L (10.0-12.5) sec Creatinine 0.5 L (0.6-1.5) mg/dL BUN/Creatinine Ratio 40.60 H (12.00-20.00) Ratio Calcium 8.6 L (8.7-10.3) mg/dL C-Reactive Protein 2.50 H (0.00-0.80) mg/dL
[2024-01-08] MEDS: CYCLOBENZAPRINE 5 MG TAB PO PRN (01:41)
--- NOTE | 2024-01-08 09:01 | P.PN ---
Subjective Progress Note Date: 01/08/24 Principal diagnosis: L1 compression fracture Patient seen and examined this morning. Patient is resting in bed. Patient does have complaint of moderate back pain. Medications have been adjusted. Surgical dressing is CDI. Pateint states she does have a brace at home that she will have family bring in for her. Patient may be up with therapy without brace. Continue to encourage patient to work with PT and to sit up in chair for all meals. Patient is to use incentive spirometer 10x per hr while awake. No acute concerns at his time. Objective - Vital Signs Vital signs: Vital Signs Temp 97.5 F L 01/08/24 07:08 Pulse 71 01/08/24 07:08 Resp 19 01/08/24 07:08 BP 111/87 01/08/24 07:08 Pulse Ox 96 01/08/24 07:08 FiO2 Intake & Output 01/07/24 01/08/24 01/08/24 18:59 06:59 18:59 Intake Total 1300 Output Total 75 350 Balance 1225 -350 Intake: IV 1300 Output: Urine 350 Estimated Blood Loss 75 Other: Voiding Method Bedside Commode Bedside Commode # Voids 3 1 - Exam Physical Examination General: The patient is awake and alert, in no acute distress Skin: Skin is warm and dry with no obvious rashes or lesions. Surgical incision to the thoracolumbar spine, dressing is clean dry and intact. Eye: Pupils are equal, round and reactive to light, extra-ocular movements are intact; there is normal conjunctiva bilaterally. Neck: The neck is supple, there is no tenderness and ROM intact. Cardiovascular: There is a regular rate and rhythm. No murmur, rub or gallop is appreciated. Respiratory: Lungs are clear to auscultation, respirations are non-labored, breath sounds are equal. Gastrointestinal: Soft, non-distended, non-tender abdomen. Back: There is no tenderness to palpation in the midline, paralumbar, parathoracic or buttocks region. There is no obvious deformity . Musculoskeletal: ROM limited secondary to pain and stiffness from surgical procedure. Muscle strength in all major muscle groups of bilateral upper extremities 5/5, bilateral lower extremities 4/5. Neurological: CN 2-12 intact. There are no obvious motor or sensory deficits. Movement and coordination equal and intact. Sensory exam to light touch intact C5-T1 and intact from L2-S1. Reflexes 2/4 in bilateral upper and lower extremities. Negative Hoffmans, babinski, and clonus signs. Psychiatric: Cooperative, appropriate mood & affect, normal judgment. - Labs CBC & Chem 7: 01/06/24 05:42 01/07/24 04:31 Labs: Abnormal Lab Results - Last 24 Hours (Table) 01/07/24 01/07/24 Range/Units 04:31 10:37 PT 9.9 L (10.0-12.5) sec Creatinine 0.5 L (0.6-1.5) mg/dL BUN/Creatinine Ratio 40.60 H (12.00-20.00) Ratio Calcium 8.6 L (8.7-10.3) mg/dL Assessment and Plan Assessment: Postop day 1: L1 ORIF with T12-L2 stabillization Severe L1 compression fracture Plan: -Appreciate enrollment consultant and team management. -Activity: Ambulate QID, OOB all meals, up and about, limit lifting bending twisting to less than 5 lbs. Use walker or cane if needed for stability. -Daily PT/OT, increase ambulation strength and balance. -Brace when up and about, not needed in bed or chair - Patient reports she will call family to bring in LSO brace, patient may be up without brace at this time. -Pain control: Adequate at this time -Meds: reviewed -GI ppx: senna, Miralax -DVT PPX: Heparin -Hygiene: Shower today. Maintain dressing clean and dry. -Encourage IS 10x/hr -Dispo: Anticipate discharge home with homecare in the next 24-48 hrs *I reviewed and discussed this case with my attending Dr. Ramirez, whom has reviewed this chart and films and is in agreement with assessment and plan of care as outlined above. I have personally seen and examined the patient, performed the documentation and the assessment and plan as written. Number of minutes spent on the visit: 20m.
[2024-01-08 10:24] LABS: HCT 39.9 % (37.2-46.3); HGB 12.7 g/dL (12.0-15.0); MCH 32.6 pg (27.0-32.0); MCHC 31.8 g/dL (32.0-37.0); MCV 102.3 FL (80.0-97.0); Mean Platelet Volume 10.7 FL (9.5-12.2); NRBC Per 100 WBC 0 X 10*3/uL (0.00-0.01); Platelet Count 353 X 10*3/uL (140-440); RDW 15.4 % (11.5-14.5); WBC 25.48 X 10*3/uL (4.50-10.00)
[2024-01-08 10:45] LABS: Blood Urea Nitrogen 19.7 mg/dL (9.0-27.0); Calcium 9.2 mg/dL (8.7-10.3); Carbon Dioxide 25.9 mmol/L (21.6-31.8); Chloride 99 mmol/L (96-109); Glucose 119 mg/dL (70-110); Potassium 5.3 mmol/L (3.5-5.5); Sodium 138 mmol/L (135-145)
--- NOTE | 2024-01-08 10:47 | P.PN ---
Subjective 83-year-old female, history of hypothyroidism, COPD/asthma, fibromyalgia, hearing loss, GERD, presents with her daughter after a fall from standing about a week ago she states that she bent over to help her dog and she had increased pain in her back and ever since she has had severe pain in her back which brought her to the emergency department. She states she is unable to ambulate due to the pain. She states that he continues to get worse and worse. She states that her legs are difficult to move secondary to the pain. She states that she continues to have increasing back pain as well as some leg pain. She denies any bowel or bladder issues. She denies any numbness or tingling at this time. She states fairly severe pinpoint tenderness over the midportion of her back At the top of the lumbar spine. X-ray of the lumbar spine completed upon arrival to the ED reveals severe compression deformity L1 of indeterminate age. L1-L2 mild endplate spurring might be present, posterior disc space narrowing at L3-4, L4-5 CT of the lumbar spine reveals compression deformity L1 with no significant posterior wall displacement. Very minimal spondylolisthesis may be present. Disc bulging present L3-4 through L4-5 without spinal canal stenosis. Moderate L4-5 foraminal stenosis 01/06/2024 Patient is seen and evaluated in room at bedside; somewhat quiet; reports he has been recommended surgical intervention by orthopedic surgery Vital signs are reviewed and stable with temperature of 97.4, pulse 90, respirations 17 and blood pressure of 119/79 --patient with burst fracture of lumbar vertebra with bilateral leg weakness and intractable low back pain -- Patient is scheduled for ORIF of L1 with stabilization T12-L1 tomorrow arturo ing -We will continue with current management; PT/OT evaluation after surgical intervention 01/08/2024 Patient is status post open reduction internal fixation of L1 burst fracture with stabilization T12-L2. Today's postop day #1. She is sitting in chair fully awake and oriented, mildly tachypneic with coughing. No chest pain. She is complaining from back pain at surgery site which is expected no weakness or numbness No urinary complaint. Patient constipated. Patient is febrile. Patient has low appetite since admission. Today she could walk with physical therapist Patient states she is allergic to penicillin causing her to pass out. But she states she has taken Levaquin before. Chest x-ray showing left retrocardiac opacity suspicious for pneumonia per radiologist. Levaquin 500 mg started with close monitoring. She has worsening leukocytosis 18,000 going up to 25,000 today. Objective - Vital Signs Vital signs: Vital Signs Temp 97.5 F L 01/08/24 07:08 Pulse 71 01/08/24 07:08 Resp 19 01/08/24 07:08 BP 111/87 01/08/24 07:08 Pulse Ox 96 01/08/24 07:08 FiO2 Intake & Output 01/07/24 01/08/24 01/08/24 18:59 06:59 18:59 Intake Total 1300 Output Total 75 350 Balance 1225 -350 Intake: IV 1300 Output: Urine 350 Estimated Blood Loss 75 Other: Voiding Method Bedside Commode Bedside Commode # Voids 3 1 - Exam GENERAL: The patient is alert and oriented x3, not in any acute distress. Well developed, well nourished. HEENT: Pupils are round and equally reacting to light. EOMI. No scleral icterus. No conjunctival pallor. Normocephalic, atraumatic. No pharyngeal erythema. No thyromegaly. CARDIOVASCULAR: S1 and S2 present. No murmurs, rubs, or gallops. -PULMONARY: Chest is clear to auscultation, no wheezing , no crackles. Tachypnea with occasional basilar crepitation ABDOMEN: Soft, nontender, nondistended, normoactive bowel sounds. No palpable organomegaly. MUSCULOSKELETAL: No joint swelling or deformity. EXTREMITIES: No cyanosis, clubbing, or pedal edema. NEUROLOGICAL: Gross neurological examination did not reveal any focal deficits. SKIN: No rashes. no petechiae. - Labs CBC & Chem 7: 01/08/24 06:29 01/07/24 04:31 Labs: Abnormal Lab Results - Last 24 Hours (Table) 01/07/24 01/08/24 Range/Units 10:37 06:29 WBC 25.48 H (4.50-10.00) X 10*3/uL RBC 3.90 L (4.10-5.20) X 10*6/uL MCV 102.3 H (80.0-97.0) FL MCH 32.6 H (27.0-32.0) pg MCHC 31.8 L (32.0-37.0) g/dL RDW 15.4 H (11.5-14.5) % PT 9.9 L (10.0-12.5) sec Assessment and Plan Assessment: 1. L1 compression fracture, s/p surgery with ORIF of L1 and T12-L2 sta bilization on 01/06. - Right lower lobe pneumonia with leukocytosis - Bilateral leg weakness secondary to above - Leukocytosis - Hypothyroidism - COPD/asthma not an active issue Plan: Start Levaquin Chest x-ray reviewed Consult pulmonary team Orthopedic team following closely for her back surgery and perioperative management Monitor leukocyte level GI prophylaxis Pepcid DVT prophylaxis deferred to surgery team Prognosis is guarded
[2024-01-08 12:03] LABS: Basophils # (M) 0 X 10*3/uL (0.00-0.10); Eosinophils # (M) 0 X 10*3/uL (0.04-0.35); Lymphocytes # (M) 14.52 X 10*3/uL (0.90-5.00); Monocytes # (M) 0.51 X 10*3/uL (0.20-1.00); Myelocytes % 1 % (0-0); Neutrophils # (M) 10.19 X 10*3/uL (1.80-7.70); Neutrophils % (M) 40 %
--- NOTE | 2024-01-08 12:35 | CT ---
EXAMINATION TYPE: CT thor lumbar spine wo con DATE OF EXAM: 01/07/2024 COMPARISON: Lumbar spine 01/05/2024 HISTORY: 83-year-old female s/p T12-L3 stabilization ORIF L1 fracture TECHNIQUE: Contiguous axial scanning of the thoracic and lumbar spine without IV contrast. Coronal an d sagittal reconstructions performed. CT DLP: 1110.6 mGycm Automated exposure control for dose reduction was used. FINDINGS: Interval vertebroplasty T12, L1, L2, and L3 with posterior lumbar fusion along these levels as well. L1 compression deformity with mild retropulsion into the ventral spinal canal. This mildly narrows th e spinal canal at T12-L1 and L1-L2. Satisfactory positioning of the orthopedic hardware. Trace grade 1 retrolisthesis L1-L2 and grade 1 anterolisthesis L2-L3 and L4-L5. Additional trace grade 1 anterolisthesis T1-T2 secondary to facet arthropathy. Accentuated mid thorac ic kyphosis. Slight dextro convex curvature along the upper thoracic spine. The L1 retropulsion along with facet arthropathy and grade 1 retrolisthesis at L1-L2 results in sever e bilateral neuroforaminal stenosis. Degenerative change contributes to moderate neural foraminal stenosis throughout the remainder of the mid and lower lumbar spine. Background osteopenia. Baastrup's disease. Posterior midline air and soft tissue swelling as well as overlying skin jessy related to recent operation. Chronic superior and inferior endplate Schmorl's nodes at T10 vertebral body. Sigmoid diverticulosis. Partially visualized cystic lesion right adnexa measuring 5.7 cm. 2.1 cm gallstone. Small hiatal hernia. Background moderate emphysema. Suspect some chronic pleural parenchymal scarring posterior right base . IMPRESSION: 1. L1 SUPERIOR AND INFERIOR ENDPLATE COMPRESSION DEFORMITIES WITH MILD RETROPULSION INTO THE VENTRAL SPINAL CANAL. MILD SPINAL CANAL NARROWING HERE AT T12-L1 AND L1-L2. 2. INTERVAL VERTEBROPLASTY CHANGE T12 THROUGH L3 LEVELS ALONG WITH POSTERIOR FUSION. 3. THE RETROPULSION AND GRADE 1 RETROLISTHESIS AT L1-L2 CONTRAST TO SEVERE BILATERAL NEUROFORAMINAL S TENOSIS. 4. 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 5. Probable moderate neuroforaminal stenoses throughout the remainder of the mid to lower lumbar spin e. 6. Partially visualized 5.7 cm cystic lesion of the right adnexa. Unclear if this represents a bladde r wall diverticulum or a cystic lesion of ovarian origin. Recommend further characterization with out patient pelvic ultrasound. 7. Cholelithiasis. Sigmoid diverticulosis. Small hiatal hernia.
[2024-01-08] MEDS: SENNOSIDES-DOCUSATE SODIUM 1 EACH TAB PO SCH (12:47)
[2024-01-08] MEDS: LEVOFLOXACIN 500MG-D5W PMX 500 MG in DEXTROSE/WATER 1 100ML.BAG IVPB SCH (12:48)
[2024-01-08] MEDS: HYDROcodone/APAP 10-325MG 1 EACH TAB PO PRN (12:48)
--- NOTE | 2024-01-08 14:13 | P.CNPUL ---
History of Present Illness Consult date: 01/08/24 Requesting physician: Pravin Tatum Reason for consult: abnormal CXR/CT, other Chief complaint: Rule out pneumonia. History of present illness: Pulmonary consult dated January 08, 2024. 83-year-old female who presented to the emergency department, on January 03, with back pain, following an injury. The patient apparently had a fall 3 weeks prior, lost her balance and fell backwards onto her buttocks. She had immediate pain, which apparently was radiating down the right leg. She also had right foot numbness and tingling. The patient apparently needed a walker after the fall, and at this point, even with a walker, finds it difficult to walk. She apparently was found to have a burst fracture at L1, and she had open treatment of that burst fracture, the T12-L3 stabilization, L1 biopsy and kyphoplasty. We were asked to see her, for possible pneumonia. The patient's chest x-ray shows some atelectasis at the right lung base. Her procalcitonin level was normal at 0.09. The patient is on room air. She is seen today in room 460. She is not having any pulmonary complaints. She denies any shortness of breath, cough, wheezing, chest tightness, or phlegm production. She was placed on IV Levaquin. Current labs include a white count of 25.48, hemoglobin 12.7, hematocrit 39.9, and platelet count 3 53,000. Sodium 138, potassium 5.3, chlorides 99, CO2 26, BUN 20, creatinine 0.5. Glucose 119. Procalcitonin was 0.06 and repeat was 0.09. Chest x-ray, in my opinion, shows evidence of atelectasis at the right lung base. Doubt significant infiltrate. Review of Systems REVIEW OF SYSTEMS: Back pain. CONSTITUTIONAL: [Negative.] NEUROLOGIC: [ Negative.] HEENT: [ Negative.] CARDIAC: [Negative.] PULMONARY: [Negative.] GI: [Negative.] : [Negative.] RHEUMATOLOGIC: [ Negative.] IMMUNOLOGIC: [ Negative.] ENDOCRINE: [Negative. ] DERMATOLOGIC: [Negative.] Past Medical History Past Medical History: Asthma, Cancer, COPD, Fibromyalgia, Hearing Disorder / Deafness, Thyroid Disorder Additional Past Medical History / Comment(s): Chronic back pain. Hearing aids, Breast cancer, Right side lympnodes removed, History of Any Multi-Drug Resistant Organisms: None Reported Past Surgical History: Breast Surgery, Hysterectomy, Joint Replacement Additional Past Surgical History / Comment(s): Right hip replacement, right side breast cancer and lynphnodes removed, Past Anesthesia/Blood Transfusion Reactions: No Reported Reaction Past Psychological History: No Psychological Hx Reported Smoking Status: Never smoker Past Alcohol Use History: Occasional Past Drug Use History: None Reported Medications and Allergies Home Medications Medication Instructions Recorded Confirmed Type Acetaminophen [Tylenol Extra 1,000 mg PO Q6H PRN 01/04/24 01/04/24 History Strength] Bimatoprost [Lumigan 0.01% Ophth 1 drop LEFT EYE HS 01/04/24 01/04/24 History Soln] Dorzolamide HCl/Pf [Dorzolamide 2% 1 drop LEFT EYE TID 01/04/24 01/04/24 History Eye Drop] Gabapentin [Neurontin] 300 mg PO TID 01/04/24 01/04/24 History Glycopyrrolate/Formoterol Fum 2 puff INHALATION RT-BID 01/04/24 01/04/24 History [Bevespi Aerosphere Inhaler] Levothyroxine Sodium [Synthroid] 88 mcg PO DAILY 01/04/24 01/04/24 History Montelukast [Singulair] 10 mg PO DAILY 01/04/24 01/04/24 History Naproxen Sodium [Aleve] 440 mg PO BID 01/04/24 01/04/24 History Omeprazole [PriLOSEC] 20 mg PO DAILY 01/04/24 01/04/24 History Allergies Allergy/AdvReac Type Severity Reaction Status Date / Time Penicillins Allergy Syncope Verified 01/04/24 18:11 codeine AdvReac SYNCOPE & Verified 01/07/24 11:55 RASH Physical Exam Osteopathic Statement: *. No significant issues noted on an osteopathic structural exam other than those noted in the History and Physical/Consult. Vitals: Vital Signs Temp Pulse Resp BP Pulse Ox 01/08/24 07:08 97.5 F L 71 19 111/87 96 01/08/24 02:22 97.9 F 79 18 157/88 92 L 01/07/24 19:44 77 133/74 94 L 01/07/24 19:29 79 133/73 93 L 01/07/24 19:14 79 118/62 92 L 01/07/24 18:59 80 156/84 92 L 01/07/24 18:44 97.7 F 81 154/84 93 L 01/07/24 17:27 97.8 F 76 16 155/84 96 01/07/24 16:55 79 16 169/76 97 01/07/24 16:25 75 16 180/80 97 01/07/24 16:10 74 16 168/74 97 01/07/24 15:55 73 16 169/73 97 01/07/24 15:40 69 16 186/80 98 01/07/24 15:25 86 16 180/81 97 Intake and Output 01/07/24 01/08/24 01/08/24 22:59 06:59 14:59 Intake Total 700 Output Total 125 300 Balance 575 -300 Intake: IV 700 Output: Urine 50 300 Estimated Blood Loss 75 Other: Voiding Method Bedside Commode # Voids 1 1 No acute distress, oriented 3. Currently on room air. No respiratory distress. HEENT examination is grossly unremarkable. Mucous membranes are moist. No oral lesions. Neck supple. Full range of motion. No adenopathy thyromegaly or neck vein distention. Cardiovascular examination reveals regular rhythm rate. S1-S2 normal. No S3 or S4. No discernible murmur noted. Heart rate of 71 bpm. Lungs reveal clear breath sounds. Breath sounds are equal bilaterally. No adventitious lung sounds including wheezes rhonchi or crackles. Room air saturation 97%. Abdomen soft bowel sounds are heard. No masses or tenderness. Extremities are intact. No cyanosis clubbing or edema. Skin is without rash or lesion. Neurologic examination is brief but nonfocal. Results - Laboratory Findings CBC and BMP: 01/08/24 06:29 01/08/24 06:29 PT/INR, D-dimer PT 9.9 sec (10.0-12.5) L 01/07/24 10:37 INR 0.9 (<1.2) 01/07/24 10:37 Abnormal lab findings: Abnormal Labs 01/06/24 01/06/24 01/06/24 05:42 05:42 05:42 WBC 18.18 H RBC 3.85 L MCV 102.1 H MCH 32.5 H MCHC 31.8 L RDW 15.7 H Neutrophils # (Manual) Lymphocytes # (Manual) 13.27 H Eosinophils # (Manual) PT Anion Gap Creatinine BUN/Creatinine Ratio 40.00 H Glucose Calcium C-Reactive Protein 2.50 H 01/07/24 01/07/24 01/08/24 04:31 10:37 06:29 WBC 25.48 H RBC 3.90 L MCV 102.3 H MCH 32.6 H MCHC 31.8 L RDW 15.4 H Neutrophils # (Manual) 10.19 H Lymphocytes # (Manual) 14.52 H Eosinophils # (Manual) 0 L PT 9.9 L Anion Gap Creatinine 0.5 L BUN/Creatinine Ratio 40.60 H Glucose Calcium 8.6 L C-Reactive Protein 01/08/24 06:29 WBC RBC MCV MCH MCHC RDW Neutrophils # (Manual) Lymphocytes # (Manual) Eosinophils # (Manual) PT Anion Gap 13.10 H Creatinine 0.5 L BUN/Creatinine Ratio 39.40 H Glucose 119 H Calcium C-Reactive Protein - Diagnostic Findings Chest x-ray: image reviewed Assessment and Plan Assessment: Atelectasis, right lung base, doubtful the patient has pneumonia. Recent fall, with burst fracture at L1, status post treatment of the L1 burst fracture, with T12-L3 stabilization procedure L1 biopsy and kyphoplasty. History of asthma. History of thyroid disease. History of chronic back pain. Lifelong non-smoker. Plan: Plan dated January 08, 2024. The patient does not have pneumonia in my opinion. The patient's procalcitonin level on 2 separate occasions, has been in the normal range. Antibiotic is discontinued. The patient's not having any respiratory issues. No breathing treatments are necessary. We will follow along and make recommendations were appropriate. The patient should have a incentive spirometer, to be used, on a regular basis. Prognosis is thought to be generally good. Time with Patient: Greater than 30
--- NOTE | 2024-01-08 18:03 | P.CONS ---
History of Present Illness - Reason for Consult Consult date: 01/08/24 Rehab needs - History of Present Illness PMR consult Mrs. Chapa is , right hand handed, lives with her daughter in 1 story home with 5-6 MATTIE. Occasionally used a walker in past, independent for ADLS. Her daughter does have an autistic son who visits a couple times a week. She has a past medical history of hypothyroidism, COPD/asthma, fibromyalgia, hearing loss, GERD, presents with her daughter after a fall from standing about a week ago she states that she bent over to help her dog and she had increased pain in her back and ever since she has had severe pain in her back which brought her to the emergency department. She states she is unable to ambulate due to the pain. She states that he continues to get worse and worse. She states that her legs are difficult to move secondary to the pain. She states that she continues to have increasing back pain as well as some leg pain. She denies any bowel or bladder issues. She denies any numbness or tingling at this time. She states fairly severe pinpoint tenderness over the midportion of her back At the top of the lumbar spine. X-ray of the lumbar spine completed upon arrival to the ED reveals severe compression deformity L1 of indeterminate age. L1-L2 mild endplate spurring might be present, posterior disc space narrowing at L3-4, L4-5 CT of the lumbar spine reveals compression deformity L1 with no significant posterior wall displacement. Very minimal spondylolisthesis may be present. Disc bulging present L3-4 through L4-5 without spinal canal stenosis. Moderate L4-5 foraminal stenosis 01/06/2024 Patient is seen and evaluated in room at bedside; somewhat quiet; reports he has been recommended surgical intervention by orthopedic surgery Vital signs are reviewed and stable with temperature of 97.4, pulse 90, respirations 17 and blood pressure of 119/79 --patient with burst fracture of lumbar vertebra with bilateral leg weakness and intractable low back pain -- Patient is scheduled for ORIF of L1 with stabilization T12-L1 tomorrow morning -We will continue with current management; PT/OT evaluation after surgical intervention 01/08/2024 Patient is status post open reduction internal fixation of L1 burst fracture with stabilization T12-L2 01/06. Patient states she is allergic to penicillin causing her to pass out. But she states she has taken Levaquin before. Chest x-ray showing left retrocardiac opacity suspicious for pneumonia per radiologist. Levaquin 500 mg started with close monitoring. She has worsening leukocytosis 18,000 going up to 25,000 today. 01/08/24: PMR consulted for rehab needs. Just given IV pain meds, is tired. 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 Having nausea, has been constipated. Denies COLBERT, CP, SOB, abdominal pain. With therapies has been min A sit to stand, ambulate 20', Mod A bathing, mAx A LE dressing/toileting. Review of Systems + per above, o/w all systems reviewed negative. Past Medical History Past Medical History: Asthma, Cancer, COPD, Fibromyalgia, Hearing Disorder / Deafness, Thyroid Disorder Additional Past Medical History / Comment(s): Chronic back pain. Hearing aids, Breast cancer, Right side lympnodes removed, History of Any Multi-Drug Resistant Organisms: None Reported Past Surgical History: Breast Surgery, Hysterectomy, Joint Replacement Additional Past Surgical History / Comment(s): Right hip replacement, right side breast cancer and lynphnodes removed, Past Anesthesia/Blood Transfusion Reactions: No Reported Reaction Past Psychological History: No Psychological Hx Reported Smoking Status: Never smoker Past Alcohol Use History: Occasional Past Drug Use History: None Reported Medications and Allergies Home Medications Medication Instructions Recorded Confirmed Type Acetaminophen [Tylenol Extra 1,000 mg PO Q6H PRN 01/04/24 01/04/24 History Strength] Bimatoprost [Lumigan 0.01% Ophth 1 drop LEFT EYE HS 01/04/24 01/04/24 History Soln] Dorzolamide HCl/Pf [Dorzolamide 2% 1 drop LEFT EYE TID 01/04/24 01/04/24 History Eye Drop] Gabapentin [Neurontin] 300 mg PO TID 01/04/24 01/04/24 History Glycopyrrolate/Formoterol Fum 2 puff INHALATION RT-BID 01/04/24 01/04/24 History [Bevespi Aerosphere Inhaler] Levothyroxine Sodium [Synthroid] 88 mcg PO DAILY 01/04/24 01/04/24 History Montelukast [Singulair] 10 mg PO DAILY 01/04/24 01/04/24 History Naproxen Sodium [Aleve] 440 mg PO BID 01/04/24 01/04/24 History Omeprazole [PriLOSEC] 20 mg PO DAILY 01/04/24 01/04/24 History Allergies Allergy/AdvReac Type Severity Reaction Status Date / Time Penicillins Allergy Syncope Verified 01/04/24 18:11 codeine AdvReac SYNCOPE & Verified 01/07/24 11:55 RASH Physical Exam Vitals: Vital Signs Temp Pulse Resp BP Pulse Ox 01/08/24 14:58 97.8 F 83 17 126/79 94 L 01/08/24 07:08 97.5 F L 71 19 111/87 96 01/08/24 02:22 97.9 F 79 18 157/88 92 L 01/07/24 19:44 77 133/74 94 L 01/07/24 19:29 79 133/73 93 L 01/07/24 19:14 79 118/62 92 L 01/07/24 18:59 80 156/84 92 L 01/07/24 18:44 97.7 F 81 154/84 93 L Intake and Output 01/08/24 01/08/24 01/08/24 06:59 14:59 22:59 Output Total 300 Balance -300 Output: Urine 300 Other: # Voids 1 Gen: NAD, alert, tired HEENT: PERRLA, EOMI, neck supple Heart: Regular rate Lungs: non labored respirations Abd: soft nt/nt Neuro: A&O x4 (with correction), speech fluent, CN2-12 grossly intact MMT 4/5 UE, 3-4/5 LE SILT UE/LE Ext: no calf TTP, no significant LE edema Results CBC & Chem 7: 01/08/24 06:29 01/08/24 06:29 Labs: Abnormal Lab Results - Last 24 Hours (Table) 01/08/24 01/08/24 Range/Units 06:29 06:29 WBC 25.48 H (4.50-10.00) X 10*3/uL RBC 3.90 L (4.10-5.20) X 10*6/uL MCV 102.3 H (80.0-97.0) FL MCH 32.6 H (27.0-32.0) pg MCHC 31.8 L (32.0-37.0) g/dL RDW 15.4 H (11.5-14.5) % Neutrophils # (Manual) 10.19 H (1.80-7.70) X 10*3/uL Lymphocytes # (Manual) 14.52 H (0.90-5.00) X 10*3/uL Eosinophils # (Manual) 0 L (0.04-0.35) X 10*3/uL Anion Gap 13.10 H (4.00-12.00) mmol/L Creatinine 0.5 L (0.6-1.5) mg/dL BUN/Creatinine Ratio 39.40 H (12.00-20.00) Ratio Glucose 119 H (70-110) mg/dL Assessment and Plan Assessment: # Gait impairment s/p fall - on PT/OT # L1 compression fracture, s/p surgery with ORIF of L1 and T12-L2 stabilization on 01/[address] Ramirez # Right lower lobe pneumonia with leukocytosis # Bilateral leg weakness secondary to above # Hypothyroidism # COPD/asthma not an active issue # Constipation - bowel program per protocol Recommendations: - per your medical management - continue PT/OT Anticipate will need skilled therapies, likely IPR when medically stable and pain better controlled.
--- NOTE | 2024-01-09 09:08 | P.PN ---
Subjective Progress Note Date: 01/09/24 Principal diagnosis: L1 compression fracture patient seen and examined this morning. Patient is resting comfortably in bed. She does report increased low back pain with activity. Patient did have family bring in her back brace, which is a compression band. Informed patient we would like to order a LSO brace and she is agreeable with this. Prescription has been placed in chart. Continue to encourage patient to be up in chair with all meals and work with PT. Objective - Vital Signs Vital signs: Vital Signs Temp 97.8 F 01/09/24 01:54 Pulse 90 01/09/24 01:54 Resp 16 01/09/24 01:54 BP 138/94 01/09/24 02:59 Pulse Ox 87 L 01/09/24 02:35 FiO2 Intake & Output 01/08/24 01/09/24 01/09/24 18:59 06:59 18:59 Other: Voiding Method Bedside Commode # Voids 2 - Exam Physical Examination General: The patient is awake and alert, in no acute distress Skin: Skin is warm and dry with no obvious rashes or lesions. Surgical incision to the thoracolumbar spine, dressing is clean dry and intact. Eye: Pupils are equal, round and reactive to light, extra-ocular movements are intact; there is normal conjunctiva bilaterally. Neck: The neck is supple, there is no tenderness and ROM intact. Cardiovascular: There is a regular rate and rhythm. No murmur, rub or gallop is appreciated. Respiratory: Lungs are clear to auscultation, respirations are non-labored, breath sounds are equal. Gastrointestinal: Soft, non-distended, non-tender abdomen. Back: There is no tenderness to palpation in the midline, paralumbar, parathoracic or buttocks region. There is no obvious deformity . Musculoskeletal: ROM limited secondary to pain and stiffness from surgical procedure. Muscle strength in all major muscle groups of bilateral upper extremities 5/5, bilateral lower extremities 4/5. Neurological: CN 2-12 intact. There are no obvious motor or sensory deficits. Movement and coordination equal and intact. Sensory exam to light touch intact C5-T1 and intact from L2-S1. Reflexes 2/4 in bilateral upper and lower extremities. Negative Hoffmans, babinski, and clonus signs. Psychiatric: Cooperative, appropriate mood & affect, normal judgment. - Labs CBC & Chem 7: 01/08/24 06:29 01/08/24 06:29 Labs: Abnormal Lab Results - Last 24 Hours (Table) 01/08/24 01/08/24 Range/Units 06: 06:29 WBC 25.48 H (4.50-10.00) X 10*3/uL RBC 3.90 L (4.10-5.20) X 10*6/uL MCV 102.3 H (80.0-97.0) FL MCH 32.6 H (27.0-32.0) pg MCHC 31.8 L (32.0-37.0) g/dL RDW 15.4 H (11.5-14.5) % Neutrophils # (Manual) 10.19 H (1.80-7.70) X 10*3/uL Lymphocytes # (Manual) 14.52 H (0.90-5.00) X 10*3/uL Eosinophils # (Manual) 0 L (0.04-0.35) X 10*3/uL Anion Gap 13.10 H (4.00-12.00) mmol/L Creatinine 0.5 L (0.6-1.5) mg/dL BUN/Creatinine Ratio 39.40 H (12.00-20.00) Ratio Glucose 119 H (70-110) mg/dL Assessment and Plan Assessment: Postop day 2: L1 ORIF with T12-L2 stabillization Severe L1 compression fracture Plan: -Appreciate edi consultant and team management. -Activity: Ambulate QID, OOB all meals, up and about, limit lifting bending twisting to less than 5 lbs. Use walker or cane if needed for stability. -Daily PT/OT, increase ambulation strength and balance. -Brace when up and about, not needed in bed or chair - Prescription placed in chart for LSO brace -Pain control: Adequate at this time -Meds: reviewed -GI ppx: senna, Miralax -DVT PPX: Heparin -Hygiene: Shower today. Maintain dressing clean and dry. -Encourage IS 10x/hr -Dispo: Anticipate discharge home with homecare in the next 24-48 hrs *I reviewed and discussed this case with my attending Dr. Ramirez, whom has reviewed this chart and films and is in agreement with assessment and plan of ca re as outlined above. I have personally seen and examined the patient, performed the documentation and the assessment and plan as written. Number of minutes spent on the visit: 20m.
[2024-01-09 09:11] LABS: HCT 35.2 % (34.0-46.0); HGB 11.8 gm/dL (11.4-16.0); MCH 33.4 pg (25.0-35.0); MCHC 33.6 g/dL (31.0-37.0); MCV 99.5 fL (80.0-100.0); Mean Platelet Volume 7.9; Platelet Count 368 k/uL (150-450); RBC 3.53 m/uL (3.80-5.40); RDW 14.2 % (11.5-15.5); WBC 22.6 k/uL (3.8-10.6)
[2024-01-09 09:53] LABS: Lymphocytes # (M) 11.75 k/uL (1.0-4.8); Monocytes # (M) 1.58 k/uL (0-1.0); Neutrophils # (M) 9.49 k/uL (1.3-7.7); Neutrophils % (M) 42 %; Nucleated Red Blood Cells 0 /100 WBC (0-0); Total Cells Counted 200
--- NOTE | 2024-01-09 12:21 | P.PN ---
Subjective 83-year-old female, history of hypothyroidism, COPD/asthma, fibromyalgia, hearing loss, GERD, presents with her daughter after a fall from standing about a week ago she states that she bent over to help her dog and she had increased pain in her back and ever since she has had severe pain in her back which brought her to the emergency department. She states she is unable to ambulate due to the pain. She states that he continues to get worse and worse. She states that her legs are difficult to move secondary to the pain. She states that she continues to have increasing back pain as well as some leg pain. She denies any bowel or bladder issues. She denies any numbness or tingling at this time. She states fairly severe pinpoint tenderness over the midportion of her back At the top of the lumbar spine. X-ray of the lumbar spine completed upon arrival to the ED reveals severe compression deformity L1 of indeterminate age. L1-L2 mild endplate spurring might be present, posterior disc space narrowing at L3-4, L4-5 CT of the lumbar spine reveals compression deformity L1 with no significant posterior wall displacement. Very minimal spondylolisthesis may be present. Disc bulging present L3-4 through L4-5 without spinal canal stenosis. Moderate L4-5 foraminal stenosis 01/06/2024 Patient is seen and evaluated in room at bedside; somewhat quiet; reports he has been recommended surgical intervention by orthopedic surgery Vital signs are reviewed and stable with temperature of 97.4, pulse 90, respirations 17 and blood pressure of 119/79 --patient with burst fracture of lumbar vertebra with bilateral leg weakness and intractable low back pain -- Patient is scheduled for ORIF of L1 with stabilization T12-L1 tomorrow arturo ing -We will continue with current management; PT/OT evaluation after surgical intervention 01/08/2024 Patient is status post open reduction internal fixation of L1 burst fracture with stabilization T12-L2. Today's postop day #1. She is sitting in chair fully awake and oriented, mildly tachypneic with coughing. No chest pain. She is complaining from back pain at surgery site which is expected no weakness or numbness No urinary complaint. Patient constipated. Patient is febrile. Patient has low appetite since admission. Today she could walk with physical therapist Patient states she is allergic to penicillin causing her to pass out. But she states she has taken Levaquin before. Chest x-ray showing left retrocardiac opacity suspicious for pneumonia per radiologist. Levaquin 500 mg started with close monitoring. She has worsening leukocytosis 18,000 going up to 25,000 today. 01/09/2024 Patient breathing is stable, pneumonia has been excluded. However patient is still has leukocytosis coming down slowly 25k down to 22 K Patient today complaining from mild abdominal distention and mild abdominal tenderness in the middle of his abdomen. No rebound tenderness or guarding and her abdomen looks soft. Therefore we are going to order a KUB. Her last bowel movement was Sunday. Objective - Vital Signs Vital signs: Vital Signs Temp 97.8 F 01/09/24 01:54 Pulse 90 01/09/24 01:54 Resp 16 01/09/24 01:54 BP 138/94 01/09/24 02:59 Pulse Ox 87 L 01/09/24 02:35 FiO2 Intake & Output 01/08/24 01/09/24 01/09/24 18:59 06:59 18:59 Other: Voiding Method Bedside Commode Bedside Commode # Voids 2 - Exam GENERAL: The patient is alert and oriented x3, not in any acute distress. Well developed, well nourished. HEENT: Pupils are round and equally reacting to light. EOMI. No scleral icterus. No conjunctival pallor. Normocephalic, atraumatic. No pharyngeal erythema. No thyromegaly. CARDIOVASCULAR: S1 and S2 present. No murmurs, rubs, or gallops. -PULMONARY: Chest is clear to auscultation, no wheezing , no crackles. Tachypnea with occasional basilar crepitation ABDOMEN: Soft, nontender, nondistended, normoactive bowel sounds. No palpable organomegaly. MUSCULOSKELETAL: No joint swelling or deformity. EXTREMITIES: No cyanosis, clubbing, or pedal edema. NEUROLOGICAL: Gross neurological examination did not reveal any focal deficits. SKIN: No rashes. no petechiae. - Labs CBC & Chem 7: 01/09/24 08:47 01/08/24 06:29 Labs: Abnormal Lab Results - Last 24 Hours (Table) 01/09/24 Range/Units 08:47 WBC 22.6 H (3.8-10.6) k/uL RBC 3.53 L (3.80-5.40) m/uL Neutrophils # (Manual) 9.49 H (1.3-7.7) k/uL Lymphocytes # (Manual) 11.75 H (1.0-4.8) k/uL Monocytes # (Manual) 1.58 H (0-1.0) k/uL Assessment and Plan Assessment: 1. L1 compression fracture, s/p surgery with ORIF of L1 and T12-L2 stabilization on 01/06. - leukocytosis, could be reactive secondary to fracture and surgery. Pneumonia has been excluded - Constipation, with mild abdominal pain and distention. Rule out ileus obstruction - Bilateral leg weakness secondary to above - Hypothyroidism - COPD/asthma not an active issue Plan: Levaquin was discontinued. Pneumonia excluded and pulmonary input is reviewed. Check KUB. Monitor WBC Orthopedic team following closely for her back surgery and perioperative management Physical therapy PMR evaluation Monitor leukocyte level GI prophylaxis Pepcid DVT prophylaxis deferred to surgery team Prognosis is guarded
--- NOTE | 2024-01-09 12:50 | XR ---
EXAMINATION TYPE: XR KUB portable DATE OF EXAM: 01/09/2024 12:41 PM CLINICAL INDICATION:Female, 83 years old with history of distension and tender; PHH COMPARISON: None. TECHNIQUE: One radiographic view of the abdomen was obtained. FINDINGS: There are postsurgical changes to the abdomen with skin jessy present. Additional fixatio n hardware in the lumbar spine appears intact. Right hip arthroplasty appears intact. The Bowel gas p attern is nonspecific with large amount stool without dilated loops of small or large bowel. There is no evidence for organomegaly or pneumoperitoneum. The osseous structures are intact. No abnormal c alcifications are present. Fecal material and gas are demonstrated throughout the colon and rectum. IMPRESSION: Large stool burden, Nonspecific bowel gas pattern without radiographic evidence for acute process.
--- NOTE | 2024-01-09 14:09 | P.PN ---
Subjective Progress Note Date: 01/09/24 83-year-old female who presented to the emergency department, on January 03, with back pain, following an injury. The patient apparently had a fall 3 weeks prior, lost her balance and fell backwards onto her buttocks. She had immediate pain, which apparently was radiating down the right leg. She also had right foot numbness and tingling. The patient apparently needed a walker after the fall, and at this point, even with a walker, finds it difficult to walk. She apparently was found to have a burst fracture at L1, and she had open treatment of that burst fracture, the T12-L3 stabilization, L1 biopsy and kyphoplasty. We were asked to see her, for possible pneumonia. The patient's chest x-ray shows some atelectasis at the right lung base. Her procalcitonin level was normal at 0.09. The patient is on room air. She is seen today in room 460. She is not having any pulmonary complaints. She denies any shortness of breath, cough, wheezing, chest tightness, or phlegm production. She was placed on IV Levaquin. Current labs include a white count of 25.48, hemoglobin 12.7, hematocrit 39.9, and platelet count 3 53,000. Sodium 138, potassium 5.3, chlorides 99, CO2 26, BUN 20, creatinine 0.5. Glucose 119. Procalcitonin was 0.06 and repeat was 0.09. Chest x-ray, in my opinion, shows evidence of atelectasis at the right lung base. Doubt significant infiltrate. The patient is seen today January 09, 2024 in follow-up on the regular medical floor. She is currently resting comfortably in bed. Awake and alert in no acute distress. Maintaining O2 saturations in the 90s on room air. She denies any worsening shortness of breath, cough or congestion. She is having some abdominal distention and bloating. X-ray revealed large stool burden, nonspecific bowel gas pattern without radiographic evidence for acute process. White count 22.6. Hemoglobin 11.8. Platelets 368. Procalcitonin was negative again at 0.09. She is on heparin for DVT prophylaxis. Objective - Vital Signs Vital signs: Vital Signs Temp 97.5 F L 01/09/24 12:40 Pulse 110 H 01/09/24 12:40 Resp 17 01/09/24 12:40 BP 131/78 01/09/24 12:40 Pulse Ox 93 L 01/09/24 12:40 FiO2 Intake & Output 01/08/24 01/09/24 01/09/24 18:59 06:59 18:59 Other: Voiding Method Bedside Commode Bedside Commode # Voids 2 - Exam GENERAL EXAM: Alert, pleasant 83-year-old female, on room air, comfortable in no apparent distress. HEAD: Normocephalic. EYES: Normal reaction of pupils, equal size. NOSE: Clear with pink turbinates. THROAT: No erythema or exudates. NECK: No masses, no JVD. CHEST: No chest wall deformity. LUNGS: Equal air entry with no crackles, wheeze, rhonchi or dullness. CVS: S1 and S2 normal with no audible murmur, regular rhythm. ABDOMEN: Distended, no hepatosplenomegaly, normal bowel sounds, no guarding or rigidity. SPINE: No scoliosis or deformity SKIN: No rashes CENTRAL NERVOUS SYSTEM: No focal deficits, tone is normal in all 4 extremities. EXTREMITIES: There is no peripheral edema. No clubbing, no cyanosis. Peripheral pulses are intact. - Labs CBC & Chem 7: 01/09/24 08:47 01/08/24 06:29 Labs: Abnormal Lab Results - Last 24 Hours (Table) 01/09/24 Range/Units 08:47 WBC 22.6 H (3.8-10.6) k/uL RBC 3.53 L (3.80-5.40) m/uL Neutrophils # (Manual) 9.49 H (1.3-7.7) k/uL Lymphocytes # (Manual) 11.75 H (1.0-4.8) k/uL Monocytes # (Manual) 1.58 H (0-1.0) k/uL Assessment and Plan Assessment: Atelectasis, right lung base, doubtful the patient has pneumonia. Procalcitonin was negative twice. Recent fall, with burst fracture at L1, status post treatment of the L1 burst fracture, with T12-L3 stabilization procedure L1 biopsy and kyphoplasty. Abdominal distention, x-ray reveals large stool burden but no acute abdominal process. History of asthma. History of thyroid disease. History of chronic back pain. Lifelong non-smoker. Plan: The patient was seen and evaluated Abdominal x-ray, labs and medications reviewed Procalcitonin remains negative No need for antibiotics Stable and on room air I have personally seen and examined the patient, performed the documentation and the assessment and plan as written. Number of minutes spent on the visit: 10.
[2024-01-10] MEDS ORDERED: IPRATROPIUM-ALBUTEROL 3 ML NEB INHALATION PRN (05:45)
--- NOTE | 2024-01-10 07:43 | XR ---
EXAMINATION TYPE: XR chest 1V DATE OF EXAM: 01/09/2024 HISTORY: Shortness of breath. COMPARISON: 01/06/2024 TECHNIQUE: Single view of the chest is submitted. FINDINGS: Demonstrated are scattered senescent parenchymal change. There is no evidence for focal infiltrate. Right basilar parenchymal scarring or linear atelectasis. The heart is stable. Hilar and mediastinal structures are within normal limits. Degenerative changes are seen of the dorsal spine. IMPRESSION: 1. Right basilar parenchymal scarring or linear atelectasis.
[2024-01-10 10:30] LABS: HGB 11.8 g/dL (12.0-15.0); MCH 31.6 pg (27.0-32.0); MCHC 31.1 g/dL (32.0-37.0); MCV 101.9 FL (80.0-97.0); Mean Platelet Volume 10.3 FL (9.5-12.2); NRBC Per 100 WBC 0 X 10*3/uL (0.00-0.01); Platelet Count 395 X 10*3/uL (140-440); RBC 3.73 X 10*6/uL (4.10-5.20); WBC 22.71 X 10*3/uL (4.50-10.00)
[2024-01-10 11:39] LABS: Basophils # (M) 0 X 10*3/uL (0.00-0.10); Eosinophils # (M) 0.23 X 10*3/uL (0.04-0.35); Monocytes # (M) 1.36 X 10*3/uL (0.20-1.00); Neutrophils # (M) 7.72 X 10*3/uL (1.80-7.70); Neutrophils % (M) 34 %
--- NOTE | 2024-01-10 12:59 | P.PN ---
Subjective Progress Note Date: 01/10/24 Principal diagnosis: L1 burst compression fracture Patient evaluated today at bedside, she is resting in her hospital bed. Patients daughter is also present at bedside. Patient has been up and ambulating smaller distances with use of the LSO brace. She does notice most pain when she transfers from sitting to standing. Patient does admit to some hallucinations earlier this morning, she has never had these before. She denies any headaches, lightheadedness, chest pain or shortness of breath at this time. Objective - Vital Signs Vital signs: Vital Signs Temp 98.5 F 01/10/24 08:39 Pulse 83 01/10/24 08:39 Resp 17 01/10/24 08:39 BP 166/85 01/10/24 08:39 Pulse Ox 94 L 01/10/24 08:39 FiO2 Intake & Output 01/09/24 01/10/24 01/10/24 18:59 06:59 18:59 Intake Total 500 Balance 500 Intake: Oral 500 Other: Voiding Method Bedside Commode # Voids 2 2 - Exam Gen: AOx3, NAD VSS stable at this time Integument: Postoperative bandages are in good position and condition. No significant soft tissue swelling appreciated in the lumbar spine Palpation: Mild tenderness to the lumbar spine ROM: Full range of motion in all major muscle groups of the bilateral upper and lower extremities, no focal deficits appreciated Sensory Exam: Senory exam to light touch is intact C5-T1 Senosry exam to light touch is intact L2-S1 Motor: 5/5 strength appreciated in the bilateral upper extremities with shoulder tran vation, shoulder abduction, wrist extension, wrist flexion, elbow extension, elbow flexion 4/5 strength appreciated the bilateral lower extremities with hip flexion, 5/5 strength appreciated the bilateral lower extremities with knee extension, knee flexion, plantarflexion, dorsiflexion, EHL, FHL Reflexes: 2/4 in all UE and LE Negative Damon's bilaterally Negative clonus bilaterally Negative Babinski bilaterally - Labs CBC & Chem 7: 01/10/24 06:03 01/08/24 06:29 Labs: Abnormal Lab Results - Last 24 Hours (Table) 01/10/24 Range/Units 06:03 WBC 22.71 H (4.50-10.00) X 10*3/uL RBC 3.73 L (4.10-5.20) X 10*6/uL Hgb 11.8 L (12.0-15.0) g/dL MCV 101.9 H (80.0-97.0) FL MCHC 31.1 L (32.0-37.0) g/dL RDW 15.0 H (11.5-14.5) % Neutrophils # (Manual) 7.72 H (1.80-7.70) X 10*3/uL Lymphocytes # (Manual) 13.40 H (0.90-5.00) X 10*3/uL Monocytes # (Manual) 1.36 H (0.20-1.00) X 10*3/uL Assessment and Plan Assessment: Postoperative day #3 status post ORIF L1 fracture, T12-L3 posterior stabilization L1 compression fracture Other medical comorbidities Plan: Pain control, I did adjust oral medications due to the hallucinations. The Corona was decreased to 7.5 mg / 325 mg. Also did decrease the Flexeril to twice a day as needed. DVT prophylaxis per primary medical service Activity level instructions, patient was instructed again to utilize the LSO brace when up and ambulating. Recommending using walker at all times. No bending, lifting or twisting Wound care, continue to monitor surgical dressings, these can stay in place over the next 2 to 3 days Continue PT/OT Other medical specialty recommendations appreciated Discharge planning: On orthopedic standpoint patient remained stable for discharge. Would recommend subacute rehab placement for 10 to 14 days prior to being discharged home with home health care. Please contact our service with any other questions regarding this patient Time with Patient: Less than 30
--- NOTE | 2024-01-10 13:17 | P.PN ---
Subjective 83-year-old female, history of hypothyroidism, COPD/asthma, fibromyalgia, hearing loss, GERD, presents with her daughter after a fall from standing about a week ago she states that she bent over to help her dog and she had increased pain in her back and ever since she has had severe pain in her back which brought her to the emergency department. She states she is unable to ambulate due to the pain. She states that he continues to get worse and worse. She states that her legs are difficult to move secondary to the pain. She states that she continues to have increasing back pain as well as some leg pain. She denies any bowel or bladder issues. She denies any numbness or tingling at this time. She states fairly severe pinpoint tenderness over the midportion of her back At the top of the lumbar spine. X-ray of the lumbar spine completed upon arrival to the ED reveals severe compression deformity L1 of indeterminate age. L1-L2 mild endplate spurring might be present, posterior disc space narrowing at L3-4, L4-5 CT of the lumbar spine reveals compression deformity L1 with no significant posterior wall displacement. Very minimal spondylolisthesis may be present. Disc bulging present L3-4 through L4-5 without spinal canal stenosis. Moderate L4-5 foraminal stenosis 01/06/2024 Patient is seen and evaluated in room at bedside; somewhat quiet; reports he has been recommended surgical intervention by orthopedic surgery Vital signs are reviewed and stable with temperature of 97.4, pulse 90, respirations 17 and blood pressure of 119/79 --patient with burst fracture of lumbar vertebra with bilateral leg weakness and intractable low back pain -- Patient is scheduled for ORIF of L1 with stabilization T12-L1 tomorrow arturo ing -We will continue with current management; PT/OT evaluation after surgical intervention 01/08/2024 Patient is status post open reduction internal fixation of L1 burst fracture with stabilization T12-L2. Today's postop day #1. She is sitting in chair fully awake and oriented, mildly tachypneic with coughing. No chest pain. She is complaining from back pain at surgery site which is expected no weakness or numbness No urinary complaint. Patient constipated. Patient is febrile. Patient has low appetite since admission. Today she could walk with physical therapist Patient states she is allergic to penicillin causing her to pass out. But she states she has taken Levaquin before. Chest x-ray showing left retrocardiac opacity suspicious for pneumonia per radiologist. Levaquin 500 mg started with close monitoring. She has worsening leukocytosis 18,000 going up to 25,000 today. 01/09/2024 Patient breathing is stable, pneumonia has been excluded. However patient is still has leukocytosis coming down slowly 25k down to 22 K Patient today complaining from mild abdominal distention and mild abdominal tenderness in the middle of his abdomen. No rebound tenderness or guarding and her abdomen looks soft. Therefore we are going to order a KUB. Her last bowel movement was Sunday. Patient today feels better, she is sitting up in bed and eating her lunch with no difficulty, she has good appetite She denies chest pain coughing or dyspnea She has mild abdominal pain and tenderness and distention yesterday, KUB showing stool burden increased, however today with abdominal tenderness and distention improved. Patient still constipated and she agrees to the stool softeners and Dulcolax tonight. Patient is afebrile Her WBC count still elevated 22,000, it was 18,000 on admission, unknown baseline. I called her PCP Dr. Serrano he reviewed her records, she has not been having CBC recently, last one was about a year ago and it W BC count was 12.3 therefore we are going to consult infectious disease teamk. Repeat chest x-ray showing right lower lobe near scarring or atelectasis, pulmonary service on the case Objective - Vital Signs Vital signs: Vital Signs Temp 98.5 F 01/10/24 08:39 Pulse 83 01/10/24 08:39 Resp 17 01/10/24 08:39 BP 166/85 01/10/24 08:39 Pulse Ox 94 L 01/10/24 08:39 FiO2 Intake & Output 01/09/24 01/10/24 01/10/24 18:59 06:59 18:59 Intake Total 500 Balance 500 Intake: Oral 500 Other: Voiding Method Bedside Commode # Voids 2 2 - Exam GENERAL: The patient is alert and oriented x3, not in any acute distress. Well developed, well nourished. HEENT: Pupils are round and equally reacting to light. EOMI. No scleral icterus. No conjunctival pallor. Normocephalic, atraumatic. No pharyngeal erythema. No thyromegaly. CARDIOVASCULAR: S1 and S2 present. No murmurs, rubs, or gallops. -PULMONARY: Chest is clear to auscultation, no wheezing , no crackles. Tachypnea with occasional basilar crepitation ABDOMEN: Soft, nontender, nondistended, normoactive bowel sounds. No palpable organomegaly. MUSCULOSKELETAL: No joint swelling or deformity. EXTREMITIES: No cyanosis, clubbing, or pedal edema. NEUROLOGICAL: Gross neurological examination did not reveal any focal deficits. SKIN: No rashes. no petechiae. - Labs CBC & Chem 7: 01/10/24 06:03 01/08/24 06:29 Labs: Abnormal Lab Results - Last 24 Hours (Table) 01/10/24 Range/Units 06:03 WBC 22.71 H (4.50-10.00) X 10*3/uL RBC 3.73 L (4.10-5.20) X 10*6/uL Hgb 11.8 L (12.0-15.0) g/dL MCV 101.9 H (80.0-97.0) FL MCHC 31.1 L (32.0-37.0) g/dL RDW 15.0 H (11.5-14.5) % Neutrophils # (Manual) 7.72 H (1.80-7.70) X 10*3/uL Lymphocytes # (Manual) 13.40 H (0.90-5.00) X 10*3/uL Monocytes # (Manual) 1.36 H (0.20-1.00) X 10*3/uL Assessment and Plan Assessment: 1. L1 compression fracture, s/p surgery with ORIF of L1 and T12-L2 stabilization on 01/06. - leukocytosis, could be reactive secondary to fracture and surgery. Pneumonia has been excluded - Constipation, with mild abdominal pain and distention. Rule out ileus obstruction - Bilateral leg weakness secondary to above - Hypothyroidism - COPD/asthma not an active issue Plan: Levaquin was discontinued. Pneumonia excluded and pulmonary input is reviewed. Check KUB. Monitor WBC. Infectious disease consult Orthopedic team following closely for her back surgery and perioperative management Physical therapy PMR evaluation Monitor leukocyte level GI prophylaxis Pepcid DVT prophylaxis deferred to surgery team Prognosis is guarded
--- NOTE | 2024-01-10 13:40 | P.PN ---
Subjective Progress Note Date: 01/10/24 83-year-old female who presented to the emergency department, on January 03, with back pain, following an injury. The patient apparently had a fall 3 weeks prior, lost her balance and fell backwards onto her buttocks. She had immediate pain, which apparently was radiating down the right leg. She also had right foot numbness and tingling. The patient apparently needed a walker after the fall, and at this point, even with a walker, finds it difficult to walk. She apparently was found to have a burst fracture at L1, and she had open treatment of that burst fracture, the T12-L3 stabilization, L1 biopsy and kyphoplasty. We were asked to see her, for possible pneumonia. The patient's chest x-ray shows some atelectasis at the right lung base. Her procalcitonin level was normal at 0.09. The patient is on room air. She is seen today in room 460. She is not having any pulmonary complaints. She denies any shortness of breath, cough, wheezing, chest tightness, or phlegm production. She was placed on IV Levaquin. Current labs include a white count of 25.48, hemoglobin 12.7, hematocrit 39.9, and platelet count 3 53,000. Sodium 138, potassium 5.3, chlorides 99, CO2 26, BUN 20, creatinine 0.5. Glucose 119. Procalcitonin was 0.06 and repeat was 0.09. Chest x-ray, in my opinion, shows evidence of atelectasis at the right lung base. Doubt significant infiltrate. The patient is seen today January 09, 2024 in follow-up on the regular medical floor. She is currently resting comfortably in bed. Awake and alert in no acute distress. Maintaining O2 saturations in the 90s on room air. She denies any worsening shortness of breath, cough or congestion. She is having some abdominal distention and bloating. X-ray revealed large stool burden, nonspecific bowel gas pattern without radiographic evidence for acute process. White count 22.6. Hemoglobin 11.8. Platelets 368. Procalcitonin was negative again at 0.09. She is on heparin for DVT prophylaxis. The patient is seen today January 10, 2024 in follow-up on the regular medical floor. She is awake and alert in no acute distress. She is sitting up in a chair. She is maintaining good O2 saturations in the 90s on room air. No cough or congestion. No fever or chills. She is afebrile. Hemodynamically stable. White count 22.7. Hemoglobin 11.8. Platelets 395. Objective - Vital Signs Vital signs: Vital Signs Temp 98.5 F 01/10/24 08:39 Pulse 83 01/10/24 08:39 Resp 17 01/10/24 08:39 BP 166/85 01/10/24 08:39 Pulse Ox 94 L 01/10/24 08:39 FiO2 Intake & Output 01/09/24 01/10/24 01/10/24 18:59 06:59 18:59 Intake Total 500 Balance 500 Intake: Oral 500 Other: Voiding Method Bedside Commode # Voids 2 2 - Exam GENERAL EXAM: Alert, 83-year-old female, on room air, up in a chair, comfortable in no apparent distress. HEAD: Normocephalic. EYES: Normal reaction of pupils, equal size. NOSE: Clear with pink turbinates. THROAT: No erythema or exudates. NECK: No masses, no JVD. CHEST: No chest wall deformity. LUNGS: Equal air entry with no crackles, wheeze, rhonchi or dullness. CVS: S1 and S2 normal with no audible murmur, regular rhythm. ABDOMEN: Distended, no hepatosplenomegaly, normal bowel sounds, no guarding or rigidity. SPINE: No scoliosis or deformity SKIN: No rashes CENTRAL NERVOUS SYSTEM: No focal deficits, tone is normal in all 4 extremities. EXTREMITIES: There is no peripheral edema. No clubbing, no cyanosis. Peripheral pulses are intact. - Labs CBC & Chem 7: 01/10/24 06:03 01/08/24 06:29 Labs: Abnormal Lab Results - Last 24 Hours (Table) 01/10/24 Range/Units 06:03 WBC 22.71 H (4.50-10.00) X 10*3/uL RBC 3.73 L (4.10-5.20) X 10*6/uL Hgb 11.8 L (12.0-15.0) g/dL MCV 101.9 H (80.0-97.0) FL MCHC 31.1 L (32.0-37.0) g/dL RDW 15.0 H (11.5-14.5) % Neutrophils # (Manual) 7.72 H (1.80-7.70) X 10*3/uL Lymphocytes # (Manual) 13.40 H (0.90-5.00) X 10*3/uL Monocytes # (Manual) 1.36 H (0.20-1.00) X 10*3/uL Assessment and Plan Assessment: Atelectasis, right lung base, doubtful the patient has pneumonia. Procalcitonin was negative twice. Recent fall, with burst fracture at L1, status post treatment of the L1 burst fracture, with T12-L3 stabilization procedure L1 biopsy and kyphoplasty. Abdominal distention, x-ray reveals large stool burden but no acute abdominal process. History of asthma. History of thyroid disease. History of chronic back pain. Lifelong non-smoker. Plan: The patient was seen and evaluated Labs and medications reviewed Stable and on room air Plan is for inpatient rehabilitation I have personally seen and examined the patient, performed the documentation and the assessment and plan as written. Number of minutes spent on the visit: 10.
[2024-01-10] MEDS: MAGNESIUM HYDROXIDE 2,400 MG/30 ML CUP PO PRN (14:05)
[2024-01-10] MEDS: HYDROcodone/APAP 7.5-325MG 1 EACH TAB PO PRN (16:52)
[2024-01-10 18:04] LABS: Appearance,Urine Clear (Clear); Bilirubin,Urine Negative (Negative); Blood,Urine Negative (Negative); Color,Urine Light Yellow; Glucose,Urine (UA) Negative (Negative); Ketones,Urine Negative (Negative); Leukocyte Esterase,Urine Small (Negative); Mucus,Urine Rare /hpf; Nitrite,Urine Negative (Negative); Protein,Urine Negative (Negative); RBC,Urine 1 /hpf (0-5); Specific Gravity,Urine 1.012 (1.001-1.035); Squamous Epithelial Cell,Urine 6 /hpf (0-4); Urobilinogen,Urine <2.0 mg/dL (<2.0); WBC,Urine 4 /hpf (0-5)
[2024-01-10] MEDS: FAMOTIDINE 20 MG TAB PO SCH (20:34)
[2024-01-10] MEDS: CYCLOBENZAPRINE 5 MG TAB PO SCH (20:34)
[2024-01-10] MEDS: IOPAMIDOL CONTRAST (ORAL USE) VIAL PO PRN (22:32)
--- NOTE | 2024-01-10 22:58 | P.CONS ---
History of Present Illness - Reason for Consult Consult date: 01/10/24 - History of Present Illness Patient is a 83-year-old female with a past medical history significant for COPD fibromyalgia chronic back pain and this patient presenting to the hospital about a week ago for worsening back pain apparently patient did have a fall 3 weeks prior to that when the patient lost balance and fell on her buttock and images were having pain to the lower back area patient was describing the pain to be sharp moderate to severe intensity radiating down to the right leg and did have some difficulty ambulating patient on presentation to the hospital was afebrile and no fever have been going to this hospital stay patient was not tachycardic hypotensive or hypoxic patient did have a white count of 18.82 admission which went up to 25,000 on 01/08/2024 still elevated 22.7 prompting this consultation during this hospital stay patient has been evaluated by orthopedic service and the patient is status post open treatment for L1 fracture T12-L3 stabilization L1 biopsy with cement stabilization and kyphoplasty patient currently denies having any headache or URI symptoms denies having any chest pain some shortness with occasional cough some patient denies any nausea vomiting tolerating her diet has been complaining of constipation with no bowel movement for the last 5 days denies having any urinary symptoms or any worsening back pain Past Medical History Past Medical History: Asthma, Cancer, COPD, Fibromyalgia, Hearing Disorder / Deafness, Thyroid Disorder Additional Past Medical History / Comment(s): Chronic back pain. Hearing aids, Breast cancer, Right side lympnodes removed, History of Any Multi-Drug Resistant Organisms: None Reported Past Surgical History: Breast Surgery, Hysterectomy, Joint Replacement Additional Past Surgical History / Comment(s): Right hip replacement, right side breast cancer and lynphnodes removed, Past Anesthesia/Blood Transfusion Reactions: No Reported Reaction Past Psychological History: No Psychological Hx Reported Smoking Status: Never smoker Past Alcohol Use History: Occasional Past Drug Use History: None Reported Medications and Allergies Home Medications Medication Instructions Recorded Confirmed Type Acetaminophen [Tylenol Extra 1,000 mg PO Q6H PRN 01/04/24 01/04/24 History Strength] Bimatoprost [Lumigan 0.01% Ophth 1 drop LEFT EYE HS 01/04/24 01/04/24 History Soln] Dorzolamide HCl/Pf [Dorzolamide 2% 1 drop LEFT EYE TID 01/04/24 01/04/24 History Eye Drop] Gabapentin [Neurontin] 300 mg PO TID 01/04/24 01/04/24 History Glycopyrrolate/Formoterol Fum 2 puff INHALATION RT-BID 01/04/24 01/04/24 History [Bevespi Aerosphere Inhaler] Levothyroxine Sodium [Synthroid] 88 mcg PO DAILY 01/04/24 01/04/24 History Montelukast [Singulair] 10 mg PO DAILY 01/04/24 01/04/24 History Naproxen Sodium [Aleve] 440 mg PO BID 01/04/24 01/04/24 History Omeprazole [PriLOSEC] 20 mg PO DAILY 01/04/24 01/04/24 History Allergies Allergy/AdvReac Type Severity Reaction Status Date / Time Penicillins Allergy Syncope Verified 01/04/24 18:11 codeine AdvReac SYNCOPE & Verified 01/07/24 11:55 RASH Physical Exam Vitals: Vital Signs Temp Pulse Resp BP Pulse Ox 01/10/24 14:00 97.7 F 90 15 115/70 92 L 01/10/24 08:39 98.5 F 83 17 166/85 94 L 01/10/24 02:46 97.9 F 89 18 153/80 92 L 01/09/24 20:06 97.8 F 90 18 147/97 96 Intake and Output 01/10/24 01/10/24 01/10/24 06:59 14:59 22:59 Intake Total 500 Balance 500 Intake: Oral 500 Other: # Voids 2 Results CBC & Chem 7: 01/10/24 06:03 01/08/24 06:29 Labs: Abnormal Lab Results - Last 24 Hours (Table) 01/10/24 Range/Units 06:03 WBC 22.71 H (4.50-10.00) X 10*3/uL RBC 3.73 L (4.10-5.20) X 10*6/uL Hgb 11.8 L (12.0-15.0) g/dL MCV 101.9 H (80.0-97.0) FL MCHC 31.1 L (32.0-37.0) g/dL RDW 15.0 H (11.5-14.5) % Neutrophils # (Manual) 7.72 H (1.80-7.70) X 10*3/uL Lymphocytes # (Manual) 13.40 H (0.90-5.00) X 10*3/uL Monocytes # (Manual) 1.36 H (0.20-1.00) X 10*3/uL Assessment and Plan Plan: 1patient with elevated white count and this patient has been the hospital for almost a week presented with worsening back pain after a fall and has been diagnosed with L1 compression fracture status post operative repair on 01/07/2024 did have elevated white on admission and remains to be elevated patient did not have any fever during this hospital stay, did have mild elevated CRP 2.50 however procalcitonin has been normal with chest x-ray right basilar scarring versus atelectasis and the patient has been ruled out for pneumonia with etiology of elevated white count reactive to trauma versus abdominal source medical excluded 2-patient with penicillin allergy limited number of antibiotics safe to use 3-we will check blood culture check a urine culture and check CT of abdominal pelvis with contrast to complete the workup We will follow on clinical condition and cultures to further adjust medication i f needed Thank you for this consultation we will follow the patient along with you Dictation was produced using [id number] dictation software. please excuse any grammatical, word or spelling errors. Time with Patient: Greater than 30
--- NOTE | 2024-01-11 01:01 | CT ---
EXAMINATION TYPE: CT abdomen pelvis w con DATE OF EXAM: 01/11/2024 HISTORY: Leukocytosis , constipation CT DLP: 1085.3mGycm Automated Exposure Control for Dose Reduction was Utilized. CONTRAST: CT scan of the abdomen and pelvis is performed with oral and with IV Contrast, patient injected with 100 mL of Isovue 300. COMPARISON: None. FINDINGS: LUNG BASES: Mild bibasilar linear scarring and/or atelectasis. LIVER/GB: Large 2.4 cm dependent gallstone in gallbladder. PANCREAS: No significant abnormality is seen. SPLEEN: No significant abnormality is seen. ADRENALS: No significant abnormality is seen. KIDNEYS: No significant abnormality is seen. BOWEL: Oral contrast does not reach colonic level. No abnormal small or large bowel dilatation. Mild to moderate diffuse colonic fecal prominence. Diverticulosis in the left and sigmoid colon. No convin cing CT evidence for acute diverticulitis. UTERUS/ADNEXA: Uterus is surgically absent.. Pelvis is 5.7 cm thin-walled cyst or cystic lesion axial image 54. LYMPH NODES: No greater than 1cm abdominal or pelvic lymph nodes are appreciated. OSSEOUS STRUCTURES: Surgical change to right hip is present. Multilevel surgical change thoracolumbar spine is noted bridging compression type fracture with vertebroplasty at L1 level. OTHER: Small soft tissue nodule anterior wall right pelvis axial image 57 of uncertain etiology. Cons ider injection granuloma. IMPRESSION: 1. No bowel obstruction is seen. Fairly moderate diffuse colonic fecal stasis or constipation. Distal colonic diverticulosis without convincing CT evidence for acute diverticulitis. 2. There is 5.7 x 4.8 cm right pelvic presumed ovarian thin-walled cyst or cystic lesion. Ovarian ruben plasm cannot be excluded. Finding can be better evaluated and characterized with pelvic ultrasound. 3. Large internal Gallstone without CT evidence for acute cholecystitis.
[2024-01-11 10:27] LABS: HCT 35.6 % (37.2-46.3); HGB 11.4 g/dL (12.0-15.0); MCH 31.8 pg (27.0-32.0); MCV 99.2 FL (80.0-97.0); Mean Platelet Volume 10.3 FL (9.5-12.2); NRBC Per 100 WBC 0 X 10*3/uL (0.00-0.01); Platelet Count 373 X 10*3/uL (140-440); RBC 3.59 X 10*6/uL (4.10-5.20); RDW 14.6 % (11.5-14.5); WBC 23.16 X 10*3/uL (4.50-10.00)
--- NOTE | 2024-01-11 10:43 | P.CONS ---
History of Present Illness - Reason for Consult Consult date: 01/10/24 - History of Present Illness Mrs. Chapa is , right hand handed, lives with her daughter in 1 story home with 5-6 MATTIE. Occasionally used a walker in past, independent for ADLS. Her daughter does have an autistic son who visits a couple times a week. She has a past medical history of hypothyroidism, COPD/asthma, fibromyalgia, hearing loss, GERD, presents with her daughter after a fall from standing about a week ago she states that she bent over to help her dog and she had increased pain in her back and ever since she has had severe pain in her back which brought her to the emergency department. She states she is unable to ambulate due to the pain. She states that he continues to get worse and worse. She states that her legs are difficult to move secondary to the pain. She states that she continues to have increasing back pain as well as some leg pain. She denies any bowel or bladder issues. She denies any numbness or tingling at this time. She states fairly severe pinpoint tenderness over the midportion of her back At the top of the lumbar spine. X-ray of the lumbar spine completed upon arrival to the ED reveals severe compression deformity L1 of indeterminate age. L1-L2 mild endplate spurring might be present, posterior disc space narrowing at L3-4, L4-5 CT of the lumbar spine reveals compression deformity L1 with no significant posterior wall displacement. Very minimal spondylolisthesis may be present. Disc bulging present L3-4 through L4-5 without spinal canal stenosis. Moderate L4-5 foraminal stenosis 01/06/2024 Patient is seen and evaluated in room at bedside; somewhat quiet; reports he has been recommended surgical intervention by orthopedic surgery Vital signs are reviewed and stable with temperature of 97.4, pulse 90, respirations 17 and blood pressure of 119/79 --patient with burst fracture of lumbar vertebra with bilateral leg weakness and intractable low back pain -- Patient is scheduled for ORIF of L1 with stabilization T12-L1 tomorrow morning -We will continue with current management; PT/OT evaluation after surgical intervention 01/08/2024 Patient is status post open reduction internal fixation of L1 burst fracture with stabilization T12-L2 01/06. Patient states she is allergic to penicillin causing her to pass out. But she states she has taken Levaquin before. Chest x-ray showing left retrocardiac opacity suspicious for pneumonia per radiologist. Levaquin 500 mg started with close monitoring. She has worsening leukocytosis 18,000 going up to 25,000 today. 01/08/24: PMR consulted for rehab needs. Just given IV pain meds, is tired. 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 Having nausea, has been constipated. Denies COLBERT, CP, SOB, abdominal pain. 01/09: Patient seen and examined. Was supposed to be transferred to [facility] but white count continues to be elevated. No signs of infection but infectious workup not complete. Furthermoer patient hasnt had BM in 6 days. Did have small episode of hallucination, unclear if infectious etiology vs polypharm. Currently she feels fine. Pain is under control when she lays down. No abdominal pain. Passing gas. With therapies has been min A sit to stand, ambulate 20', Mod A bathing, mAx A LE dressing/toileting. Past Medical History Past Medical History: Asthma, Cancer, COPD, Fibromyalgia, Hearing Disorder / Deafness, Thyroid Disorder Additional Past Medical History / Comment(s): Chronic back pain. Hearing aids, Breast cancer, Right side lympnodes removed, History of Any Multi-Drug Resistant Organisms: None Reported Past Surgical History: Breast Surgery, Hysterectomy, Joint Replacement Additional Past Surgical History / Comment(s): Right hip replacement, right side breast cancer and lynphnodes removed, Past Anesthesia/Blood Transfusion Reactions: No Reported Reaction Past Psychological History: No Psychological Hx Reported Smoking Status: Never smoker Past Alcohol Use History: Occasional Past Drug Use History: None Reported Medications and Allergies Home Medications Medication Instructions Recorded Confirmed Type Acetaminophen [Tylenol Extra 1,000 mg PO Q6H PRN 01/04/24 01/04/24 History Strength] Bimatoprost [Lumigan 0.01% Ophth 1 drop LEFT EYE HS 01/04/24 01/04/24 History Soln] Dorzolamide HCl/Pf [Dorzolamide 2% 1 drop LEFT EYE TID 01/04/24 01/04/24 History Eye Drop] Gabapentin [Neurontin] 300 mg PO TID 01/04/24 01/04/24 History Glycopyrrolate/Formoterol Fum 2 puff INHALATION RT-BID 01/04/24 01/04/24 History [Bevespi Aerosphere Inhaler] Levothyroxine Sodium [Synthroid] 88 mcg PO DAILY 01/04/24 01/04/24 History Montelukast [Singulair] 10 mg PO DAILY 01/04/24 01/04/24 History Naproxen Sodium [Aleve] 440 mg PO BID 01/04/24 01/04/24 History Omeprazole [PriLOSEC] 20 mg PO DAILY 01/04/24 01/04/24 History Allergies Allergy/AdvReac Type Severity Reaction Status Date / Time Penicillins Allergy Syncope Verified 01/04/24 18:11 codeine AdvReac SYNCOPE & Verified 01/07/24 11:55 RASH Physical Exam Vitals: Vital Signs Temp Pulse Resp BP Pulse Ox 01/11/24 08:43 20 01/11/24 03:29 138/89 01/11/24 01:31 97.8 F 80 20 171/101 96 01/10/24 19:08 98 F 85 18 169/90 95 01/10/24 14:00 97.7 F 90 15 115/70 92 L Intake and Output 01/10/24 01/11/24 01/11/24 22:59 06:59 14:59 Intake Total 500 Output Total 200 Balance 300 Intake: Oral 500 Output: Urine 200 Other: Voiding Method Bedside Commode # Voids 4 1 # Bowel Movements 0 Gen: NAD, alert, awake HEENT: PERRLA, EOMI, neck supple Heart: Regular rate Lungs: non labored respirations Abd: soft nt/nt Neuro: A&O x4, speech fluent, CN2-12 grossly intact MMT 4/5 UE, 3-4/5 LE SILT UE/LE Ext: no calf TTP, no significant LE edema Results CBC & Chem 7: 01/11/24 06:37 01/08/24 06:29 Labs: Abnormal Lab Results - Last 24 Hours (Table) 01/10/24 01/10/24 01/10/24 Range/Units 06:03 16:43 17:41 WBC (4.50-10.00) X 10*3/uL RBC (4.10-5.20) X 10*6/uL Hgb (12.0-15.0) g/dL Hct (37.2-46.3) % MCV (80.0-97.0) FL RDW (11.5-14.5) % Neutrophils # (Manual) 7.72 H (1.80-7.70) X 10*3/uL Lymphocytes # (Manual) 13.40 H (0.90-5.00) X 10*3/uL Monocytes # (Manual) 1.36 H (0.20-1.00) X 10*3/uL C-Reactive Protein 4.2 H (<1.0) mg/dL Ur Leukocyte Esterase Small H (Negative) Ur Squamous Epith Cells 6 H (0-4) /hpf Urine Mucus Rare H (None) /hpf 01/11/24 Range/Units 06:37 WBC 23.16 H (4.50-10.00) X 10*3/uL RBC 3.59 L (4.10-5.20) X 10*6/uL Hgb 11.4 L (12.0-15.0) g/dL Hct 35.6 L (37.2-46.3) % MCV 99.2 H (80.0-97.0) FL RDW 14.6 H (11.5-14.5) % Neutrophils # (Manual) (1.80-7.70) X 10*3/uL Lymphocytes # (Manual) (0.90-5.00) X 10*3/uL Monocytes # (Manual) (0.20-1.00) X 10*3/uL C-Reactive Protein (<1.0) mg/dL Ur Leukocyte Esterase (Negative) Ur Squamous Epith Cells (0-4) /hpf Urine Mucus (None) /hpf Assessment and Plan Assessment: Gait impairment s/p fall - on PT/OT # L1 compression fracture, s/p surgery with ORIF of L1 and T12-L2 stabilization on 01/[address] Ramirez #Leukocystosis -possibly reactive but infectious workup ongoing to ensure no infectious etiology # Right lower lobe pneumonia with leukocytosis # Bilateral leg weakness secondary to above # Hypothyroidism # COPD/asthma not an active issue # Constipation - bowel program per protocol -01/10: Spoke to rn about giving MOM, would like her to have BM before transfer to rehab which will hopefully be Sunday. Recommendations: - per your medical management - continue PT/OT IPR when medically stable. Discussed with patient and her daughter at bedside. Gabriela Gonsalez MD
[2024-01-11 11:27] LABS: ALT 23 U/L (8-44); AST 24 U/L (13-35); Albumin 3.6 g/dL (3.8-4.9); Alkaline Phosphatase 217 U/L (41-126); Blood Urea Nitrogen 14.4 mg/dL (9.0-27.0); Calcium 8.9 mg/dL (8.7-10.3); Carbon Dioxide 25.3 mmol/L (21.6-31.8); Chloride 98 mmol/L (96-109); Glucose 106 mg/dL (70-110); Potassium 4.6 mmol/L (3.5-5.5); Sodium 134 mmol/L (135-145); Total Bilirubin 0.4 mg/dL (0.3-1.2); Total Protein 5.6 g/dL (6.2-8.2)
[2024-01-11 12:44] LABS: Basophils # (M) 0 X 10*3/uL (0.00-0.10); Eosinophils # (M) 0 X 10*3/uL (0.04-0.35); Lymphocytes # (M) 17.14 X 10*3/uL (0.90-5.00); Monocytes # (M) 1.16 X 10*3/uL (0.20-1.00); Myelocytes % 1 % (0-0); Neutrophils # (M) 4.63 X 10*3/uL (1.80-7.70); Neutrophils % (M) 20 %
[2024-01-11] MEDS: metroNIDAZOLE 500 MG TAB PO SCH (13:18)
[2024-01-11 13:30] VITALS: BMI 23.3
--- NOTE | 2024-01-11 16:22 | P.PN ---
Subjective Progress Note Date: 01/11/24 Principal diagnosis: Reason for follow-up is leukocytosis Patient is a 83-year-old female with a past medical history significant for COPD fibromyalgia chronic back pain and this patient presenting to the hospital for worsening back pain has been diagnosed with L1 burst fracture status post operative repair did have elevated white count prompted this consultation. On today's evaluation that is 01/09/2024, Patient is afebrile this morning and denies any chills, patient mention breathing comfortably and is currently on room air, patient denies any chest pain occasional cough patient denies any abdominal pain still have no bowel movement denies any worsening pain to the lower back. Patient white count is 23.16, creatinine 0.5 urine has been negative did have a CT abdominal pelvis no obstruction did shows moderate diffuse colonic fecal stasis Objective - Vital Signs Vital signs: Vital Signs Temp 97.8 F 01/11/24 01:31 Pulse 80 01/11/24 01:31 Resp 20 01/11/24 08:43 BP 138/89 01/11/24 03:29 Pulse Ox 96 01/11/24 01:31 FiO2 Intake & Output 01/10/24 01/11/24 01/11/24 18:59 06:59 18:59 Intake Total 800 Output Total 200 Balance 600 Intake: Oral 800 Output: Urine 200 Other: Voiding Method Bedside Commode # Voids 1 4 1 # Bowel Movements 0 - Exam GENERAL DESCRIPTION: An elderly female lying in bed in no distress RESPIRATORY SYSTEM: Unlabored breathing , decreased breath sounds at bases HEART: S1 S2 regular rate and rhythm , ABDOMEN: Soft , minimal distention but no tenderness EXTREMITIES: No edema feet - Labs CBC & Chem 7: 01/11/24 06:37 01/11/24 06:37 Labs: Abnormal Lab Results - Last 24 Hours (Table) 01/10/24 01/10/24 01/11/24 Range/Units 16:43 17:41 06:37 WBC 23.16 H (4.50-10.00) X 10*3/uL RBC 3.59 L (4.10-5.20) X 10*6/uL Hgb 11.4 L (12.0-15.0) g/dL Hct 35.6 L (37.2-46.3) % MCV 99.2 H (80.0-97.0) FL RDW 14.6 H (11.5-14.5) % Sodium (135-145) mmol/L Creatinine (0.6-1.5) mg/dL BUN/Creatinine Ratio (12.00-20.00) Ratio Alkaline Phosphatase (41-126) U/L C-Reactive Protein 4.2 H (<1.0) mg/dL Total Protein (6.2-8.2) g/dL Albumin (3.8-4.9) g/dL Ur Leukocyte Esterase Small H (Negative) Ur Squamous Epith Cells 6 H (0-4) /hpf Urine Mucus Rare H (None) /hpf 01/11/24 Range/Units 06:37 WBC (4.50-10.00) X 10*3/uL RBC (4.10-5.20) X 10*6/uL Hgb (12.0-15.0) g/dL Hct (37.2-46.3) % MCV (80.0-97.0) FL RDW (11.5-14.5) % Sodium 134 L (135-145) mmol/L Creatinine 0.5 L (0.6-1.5) mg/dL BUN/Creatinine Ratio 28.80 H (12.00-20.00) Ratio Alkaline Phosphatase 217 H (41-126) U/L C-Reactive Protein 3.10 H (<1.0) mg/dL Total Protein 5.6 L (6.2-8.2) g/dL Albumin 3.6 L (3.8-4.9) g/dL Ur Leukocyte Esterase (Negative) Ur Squamous Epith Cells (0-4) /hpf Urine Mucus (None) /hpf Assessment and Plan (1) Leukocytosis Current Visit: Yes Status: Acute Code(s): D72.829 - ELEVATED WHITE BLOOD CELL COUNT, UNSPECIFIED SNOMED Code(s): 685145182 (2) Constipation Current Visit: Yes Status: Acute Code(s): K59.00 - CONSTIPATION, UNSPECIFIED SNOMED Code(s): 39469641 Plan: 1patient with elevated white count and this patient has been the hospital for almost a week presented with worsening back pain after a fall and has been diagnosed with L1 compression fracture status post operative repair on 01/07/2024 did have elevated white on admission and remains to be elevated patient did not have any fever during this hospital stay, did have mild elevated CRP 2.50 however procalcitonin has been normal with chest x-ray right basilar scarring versus atelectasis and the patient has been ruled out for pneumonia with etiology of elevated white count reactive to trauma versus abdominal source medical excluded 2-patient with penicillin allergy limited number of antibiotics safe to use 3-patient did have CT of abdominal pelvis with evidence of severe constipation more likely contributing to his elevated white count she will be treated aggressively with IV Rocephin and Flagyl to cover for possible enteric pathogen Dictation was produced using [employer] software. please excuse any grammatical, word or spelling errors. Time with Patient: Less than 30
--- NOTE | 2024-01-11 17:54 | P.PN ---
Subjective 83-year-old female, history of hypothyroidism, COPD/asthma, fibromyalgia, hearing loss, GERD, presents with her daughter after a fall from standing about a week ago she states that she bent over to help her dog and she had increased pain in her back and ever since she has had severe pain in her back which brought her to the emergency department. She states she is unable to ambulate due to the pain. She states that he continues to get worse and worse. She states that her legs are difficult to move secondary to the pain. She states that she continues to have increasing back pain as well as some leg pain. She denies any bowel or bladder issues. She denies any numbness or tingling at this time. She states fairly severe pinpoint tenderness over the midportion of her back At the top of the lumbar spine. X-ray of the lumbar spine completed upon arrival to the ED reveals severe compression deformity L1 of indeterminate age. L1-L2 mild endplate spurring might be present, posterior disc space narrowing at L3-4, L4-5 CT of the lumbar spine reveals compression deformity L1 with no significant posterior wall displacement. Very minimal spondylolisthesis may be present. Disc bulging present L3-4 through L4-5 without spinal canal stenosis. Moderate L4-5 foraminal stenosis 01/06/2024 Patient is seen and evaluated in room at bedside; somewhat quiet; reports he has been recommended surgical intervention by orthopedic surgery Vital signs are reviewed and stable with temperature of 97.4, pulse 90, respirations 17 and blood pressure of 119/79 --patient with burst fracture of lumbar vertebra with bilateral leg weakness and intractable low back pain -- Patient is scheduled for ORIF of L1 with stabilization T12-L1 tomorrow arturo ing -We will continue with current management; PT/OT evaluation after surgical intervention 01/08/2024 Patient is status post open reduction internal fixation of L1 burst fracture with stabilization T12-L2. Today's postop day #1. She is sitting in chair fully awake and oriented, mildly tachypneic with coughing. No chest pain. She is complaining from back pain at surgery site which is expected no weakness or numbness No urinary complaint. Patient constipated. Patient is febrile. Patient has low appetite since admission. Today she could walk with physical therapist Patient states she is allergic to penicillin causing her to pass out. But she states she has taken Levaquin before. Chest x-ray showing left retrocardiac opacity suspicious for pneumonia per radiologist. Levaquin 500 mg started with close monitoring. She has worsening leukocytosis 18,000 going up to 25,000 today. 01/09/2024 Patient breathing is stable, pneumonia has been excluded. However patient is still has leukocytosis coming down slowly 25k down to 22 K Patient today complaining from mild abdominal distention and mild abdominal tenderness in the middle of his abdomen. No rebound tenderness or guarding and her abdomen looks soft. Therefore we are going to order a KUB. Her last bowel movement was Sunday. Patient today feels better, she is sitting up in bed and eating her lunch with no difficulty, she has good appetite She denies chest pain coughing or dyspnea She has mild abdominal pain and tenderness and distention yesterday, KUB showing stool burden increased, however today with abdominal tenderness and distention improved. Patient still constipated and she agrees to the stool softeners and Dulcolax tonight. Patient is afebrile Her WBC count still elevated 22,000, it was 18,000 on admission, unknown baseline. I called her PCP Dr. Serrano he reviewed her records, she has not been having CBC recently, last one was about a year ago and it W BC count was 12.3 therefore we are going to consult infectious disease teamk. Repeat chest x-ray showing right lower lobe near scarring or atelectasis, pulmonary service on the case 01/11/2024 Patient looks comfortable Breathing is okay Abdomen is soft However patient has constipation and CAT scan showing severe stool burden which were contributing to patient leukocytosis, today her WBC still 23,000. There might be some elements of focal infection contributing to the leukocytosis. There is no overt acute diverticulitis. Also there is gallstones with no cholecystitis. Patient currently placed on ceftriaxone and Flagyl Plan to be discharged to inpatient rehab when medically ready hopefully in the next few days Incidental finding on the CAT scan is ovarian cyst Objective - Vital Signs Vital signs: Vital Signs Temp 97.8 F 01/11/24 01:31 Pulse 80 01/11/24 01:31 Resp 20 01/11/24 08:43 BP 138/89 01/11/24 03:29 Pulse Ox 96 01/11/24 01:31 FiO2 Intake & Output 0601/11/24 01/11/24 18:59 06:59 18:59 Intake Total 800 Output Total 200 Balance 600 Weight 63.503 kg Intake: Oral 800 Output: Urine 200 Other: Voiding Method Bedside Commode # Voids 1 4 1 # Bowel Movements 0 - Exam GENERAL: The patient is alert and oriented x3, not in any acute distress. Well developed, well nourished. HEENT: Pupils are round and equally reacting to light. EOMI. No scleral icterus. No conjunctival pallor. Normocephalic, atraumatic. No pharyngeal erythema. No thyromegaly. CARDIOVASCULAR: S1 and S2 present. No murmurs, rubs, or gallops. -PULMONARY: Chest is clear to auscultation, no wheezing , no crackles. Tachypnea with occasional basilar crepitation ABDOMEN: Soft, nontender, nondistended, normoactive bowel sounds. No palpable organomegaly. MUSCULOSKELETAL: No joint swelling or deformity. EXTREMITIES: No cyanosis, clubbing, or pedal edema. NEUROLOGICAL: Gross neurological examination did not reveal any focal deficits. SKIN: No rashes. no petechiae. - Labs CBC & Chem 7: 01/11/24 06:37 01/11/24 06:37 Labs: Abnormal Lab Results - Last 24 Hours (Table) 01/10/24 01/10/24 01/11/24 Range/Units 16:43 17:41 06:37 WBC 23.16 H (4.50-10.00) X 10*3/uL RBC 3.59 L (4.10-5.20) X 10*6/uL Hgb 11.4 L (12.0-15.0) g/dL Hct 35.6 L (37.2-46.3) % MCV 99.2 H (80.0-97.0) FL RDW 14.6 H (11.5-14.5) % Lymphocytes # (Manual) 17.14 H (0.90-5.00) X 10*3/uL Monocytes # (Manual) 1.16 H (0.20-1.00) X 10*3/uL Eosinophils # (Manual) 0 L (0.04-0.35) X 10*3/uL Sodium (135-145) mmol/L Creatinine (0.6-1.5) mg/dL BUN/Creatinine Ratio (12.00-20.00) Ratio Alkaline Phosphatase (41-126) U/L C-Reactive Protein 4.2 H (<1.0) mg/dL Total Protein (6.2-8.2) g/dL Albumin (3.8-4.9) g/dL Ur Leukocyte Esterase Small H (Negative) Ur Squamous Epith Cells 6 H (0-4) /hpf Urine Mucus Rare H (None) /hpf 01/11/24 Range/Units 06:37 WBC (4.50-10.00) X 10*3/uL RBC (4.10-5.20) X 10*6/uL Hgb (12.0-15.0) g/dL Hct (37.2-46.3) % MCV (80.0-97.0) FL RDW (11.5-14.5) % Lymphocytes # (Manual) (0.90-5.00) X 10*3/uL Monocytes # (Manual) (0.20-1.00) X 10*3/uL Eosinophils # (Manual) (0.04-0.35) X 10*3/uL Sodium 134 L (135-145) mmol/L Creatinine 0.5 L (0.6-1.5) mg/dL BUN/Creatinine Ratio 28.80 H (12.00-20.00) Ratio Alkaline Phosphatase 217 H (41-126) U/L C-Reactive Protein 3.10 H (<1.0) mg/dL Total Protein 5.6 L (6.2-8.2) g/dL Albumin 3.6 L (3.8-4.9) g/dL Ur Leukocyte Esterase (Negative) Ur Squamous Epith Cells (0-4) /hpf Urine Mucus (None) /hpf Assessment and Plan Assessment: 1. L1 compression fracture, s/p surgery with ORIF of L1 and T12-L2 stabilization on 01/06. - leukocytosis, could be related to severe constipation , also if no improvement patient will need further workup and evaluation - Constipation, with mild abdominal pain and distention. - Bilateral leg weakness secondary to above - Hypothyroidism - COPD/asthma not an active issue Plan: Levaquin was discontinued. Pneumonia excluded and pulmonary input is reviewed. Start on Flagyl and ceftriaxone. Monitor WBC. Infectious disease consult is appreciated Orthopedic team following closely for her back surgery and perioperative management Physical therapy PMR evaluation: Plan for IPR Monitor leukocyte level GI prophylaxis Pepcid DVT prophylaxis deferred to surgery team Prognosis is guarded
[2024-01-11] MEDS ORDERED: QUEtiapine 25 MG TAB PO PRN (17:55)
[2024-01-11] MEDS: DOCUSATE 100 MG CAP PO SCH (17:57)
[2024-01-11] MEDS: LACTULOSE 20 GM/30 ML CUP PO SCH (17:58)
[2024-01-11] MEDS ORDERED: QUEtiapine 25 MG TAB PO SCH (21:00)
[2024-01-12] MEDS ORDERED: diphenhydrAMINE 50 MG/ML 1 ML VIAL IVP SCH (12:00)
--- NOTE | 2024-01-12 15:08 | P.PN ---
Subjective Progress Note Date: 01/12/24 Principal diagnosis: Reason for follow-up is leukocytosis Patient is a 83-year-old female with a past medical history significant for COPD fibromyalgia chronic back pain and this patient presenting to the hospital for worsening back pain has been diagnosed with L1 burst fracture status post operative repair did have elevated white count prompted this consultation. On today's evaluation that is 01/12/2024, the patient continues to be afebrile, the patient is on room air and breathing comfortably, the Pt denies having any chest pain or cough, the patient denies having any abdominal pain no vomiting patient did have a small bowel movement x 2 yesterday. No new lab has been repeated today blood cultures are pending Objective - Vital Signs Vital signs: Vital Signs Temp 97.5 F L 01/12/24 07:06 Pulse 79 01/12/24 07:06 Resp 16 01/12/24 07:06 BP 172/92 01/12/24 07:06 Pulse Ox 95 01/12/24 07:06 FiO2 Intake & Output 01/11/24 01/12/24 01/12/24 18:59 06:59 18:59 Weight 63.503 kg Other: Voiding Method Bedside Commode Bedside Commode # Voids 1 1 1 # Bowel Movements 2 1 - Exam GENERAL DESCRIPTION: An elderly female lying in bed in no distress RESPIRATORY SYSTEM: Unlabored breathing , decreased breath sounds at bases HEART: S1 S2 regular rate and rhythm , ABDOMEN: Soft , minimal distention but no tenderness EXTREMITIES: No edema feet - Labs CBC & Chem 7: 01/11/24 06:37 01/11/24 06:37 Labs: Abnormal Lab Results - Last 24 Hours (Table) 01/11/24 Range/Units 06:37 Lymphocytes # (Manual) 17.14 H (0.90-5.00) X 10*3/uL Monocytes # (Manual) 1.16 H (0.20-1.00) X 10*3/uL Eosinophils # (Manual) 0 L (0.04-0.35) X 10*3/uL Microbiology - Last 24 Hours (Table) 01/10/24 16:43 Blood Culture - Preliminary Blood Assessment and Plan (1) Leukocytosis Current Visit: Yes Status: Acute Code(s): D72.829 - ELEVATED WHITE BLOOD CELL COUNT, UNSPECIFIED SNOMED Code(s): 252416920 (2) Constipation Current Visit: Yes Status: Acute Code(s): K59.00 - CONSTIPATION, UNSPECIFIED SNOMED Code(s): 77034923 Plan: 1patient with elevated white count and this patient has been the hospital for almost a week presented with worsening back pain after a fall and has been diagnosed with L1 compression fracture status post operative repair on 01/07/2024 did have elevated white on admission and remains to be elevated patient did not have any fever during this hospital stay, did have mild elevated CRP 2.50 however procalcitonin has been normal with chest x-ray right basilar scarring versus atelectasis and the patient has been ruled out for pneumonia with etiology of elevated white count reactive to trauma versus abdominal source medical excluded 2-patient with penicillin allergy limited number of antibiotics safe to use 3-patient did have CT of abdominal pelvis with evidence of severe constipation m ore likely contributing to his elevated white count did have a bowel movement we will repeat a CBC with a.m. lab continue with Rocephin and Flagyl questions were answered Dictation was produced using [employer] dictation software. please excuse any grammatical, word or spelling errors. Time with Patient: Less than 30
--- NOTE | 2024-01-12 21:20 | P.PN ---
Subjective 83-year-old female, history of hypothyroidism, COPD/asthma, fibromyalgia, hearing loss, GERD, presents with her daughter after a fall from standing about a week ago she states that she bent over to help her dog and she had increased pain in her back and ever since she has had severe pain in her back which brought her to the emergency department. She states she is unable to ambulate due to the pain. She states that he continues to get worse and worse. She states that her legs are difficult to move secondary to the pain. She states that she continues to have increasing back pain as well as some leg pain. She denies any bowel or bladder issues. She denies any numbness or tingling at this time. She states fairly severe pinpoint tenderness over the midportion of her back At the top of the lumbar spine. X-ray of the lumbar spine completed upon arrival to the ED reveals severe compression deformity L1 of indeterminate age. L1-L2 mild endplate spurring might be present, posterior disc space narrowing at L3-4, L4-5 CT of the lumbar spine reveals compression deformity L1 with no significant posterior wall displacement. Very minimal spondylolisthesis may be present. Disc bulging present L3-4 through L4-5 without spinal canal stenosis. Moderate L4-5 foraminal stenosis 01/06/2024 Patient is seen and evaluated in room at bedside; somewhat quiet; reports he has been recommended surgical intervention by orthopedic surgery Vital signs are reviewed and stable with temperature of 97.4, pulse 90, respirations 17 and blood pressure of 119/79 --patient with burst fracture of lumbar vertebra with bilateral leg weakness and intractable low back pain -- Patient is scheduled for ORIF of L1 with stabilization T12-L1 tomorrow arturo ing -We will continue with current management; PT/OT evaluation after surgical intervention 01/08/2024 Patient is status post open reduction internal fixation of L1 burst fracture with stabilization T12-L2. Today's postop day #1. She is sitting in chair fully awake and oriented, mildly tachypneic with coughing. No chest pain. She is complaining from back pain at surgery site which is expected no weakness or numbness No urinary complaint. Patient constipated. Patient is febrile. Patient has low appetite since admission. Today she could walk with physical therapist Patient states she is allergic to penicillin causing her to pass out. But she states she has taken Levaquin before. Chest x-ray showing left retrocardiac opacity suspicious for pneumonia per radiologist. Levaquin 500 mg started with close monitoring. She has worsening leukocytosis 18,000 going up to 25,000 today. 01/09/2024 Patient breathing is stable, pneumonia has been excluded. However patient is still has leukocytosis coming down slowly 25k down to 22 K Patient today complaining from mild abdominal distention and mild abdominal tenderness in the middle of his abdomen. No rebound tenderness or guarding and her abdomen looks soft. Therefore we are going to order a KUB. Her last bowel movement was Sunday. Patient today feels better, she is sitting up in bed and eating her lunch with no difficulty, she has good appetite She denies chest pain coughing or dyspnea She has mild abdominal pain and tenderness and distention yesterday, KUB showing stool burden increased, however today with abdominal tenderness and distention improved. Patient still constipated and she agrees to the stool softeners and Dulcolax tonight. Patient is afebrile Her WBC count still elevated 22,000, it was 18,000 on admission, unknown baseline. I called her PCP Dr. Serrano he reviewed her records, she has not been having CBC recently, last one was about a year ago and it W BC count was 12.3 therefore we are going to consult infectious disease teamk. Repeat chest x-ray showing right lower lobe near scarring or atelectasis, pulmonary service on the case 01/11/2024 Patient looks comfortable Breathing is okay Abdomen is soft However patient has constipation and CAT scan showing severe stool burden which were contributing to patient leukocytosis, today her WBC still 23,000. There might be some elements of focal infection contributing to the leukocytosis. There is no overt acute diverticulitis. Also there is gallstones with no cholecystitis. Patient currently placed on ceftriaxone and Flagyl Plan to be discharged to inpatient rehab when medically ready hopefully in the next few days Incidental finding on the CAT scan is ovarian cyst 01/12/2024 pt looks lethargic a little bit, no much different from before no abdominal symptoms had two bowel movement pt remains on broad spectrum antibiotics for abdominal infection Objective - Vital Signs Vital signs: Vital Signs Temp 98.1 F 01/12/24 14:37 Pulse 75 01/12/24 14:37 Resp 16 01/12/24 14:37 BP 176/95 01/12/24 14:37 Pulse Ox 98 01/12/24 14:37 FiO2 Intake & Output 01/12/24 01/12/24 01/13/24 06:59 18:59 06:59 Other: Voiding Method Bedside Commode # Voids 1 1 # Bowel Movements 2 1 - Exam GENERAL: The patient is alert and oriented x3, not in any acute distress. Well developed, well nourished. HEENT: Pupils are round and equally reacting to light. EOMI. No scleral icterus. No conjunctival pallor. Normocephalic, atraumatic. No pharyngeal erythema. No thyromegaly. CARDIOVASCULAR: S1 and S2 present. No murmurs, rubs, or gallops. -PULMONARY: Chest is clear to auscultation, no wheezing , no crackles. Tachypnea with occasional basilar crepitation ABDOMEN: Soft, nontender, nondistended, normoactive bowel sounds. No palpable organomegaly. MUSCULOSKELETAL: No joint swelling or deformity. EXTREMITIES: No cyanosis, clubbing, or pedal edema. NEUROLOGICAL: Gross neurological examination did not reveal any focal deficits. SKIN: No rashes. no petechiae. - Labs CBC & Chem 7: 01/11/24 06:37 01/11/24 06:37 Labs: Microbiology - Last 24 Hours (Table) 01/10/24 16:43 Blood Culture - Preliminary Blood Assessment and Plan Assessment: 1. L1 compression fracture, s/p surgery with ORIF of L1 and T12-L2 stabilization on 01/06. - leukocytosis, could be related to severe constipation , also if no improvement patient will need further workup and evaluation - Constipation, with mild abdominal pain and distention. - Bilateral leg weakness secondary to above - Hypothyroidism - COPD/asthma not an active issue Plan: Levaquin was discontinued. Pneumonia excluded and pulmonary input is reviewed. Start on Flagyl and ceftriaxone. Monitor WBC. Infectious disease consult is appreciated Orthopedic team following closely for her back surgery and perioperative management Physical therapy PMR evaluation: Plan for IPR Monitor leukocyte level GI prophylaxis Pepcid DVT prophylaxis deferred to surgery team Prognosis is guarded
[2024-01-12] MEDS: amLODIPine 5 MG TAB PO SCH (22:08)
[2024-01-13 10:29] LABS: Basophils # (M) 0 X 10*3/uL (0.00-0.10); Blood Urea Nitrogen 9.7 mg/dL (9.0-27.0); Calcium 8.6 mg/dL (8.7-10.3); Carbon Dioxide 22.8 mmol/L (21.6-31.8); Chloride 100 mmol/L (96-109); Eosinophils # (M) 0 X 10*3/uL (0.04-0.35); Glucose 104 mg/dL (70-110); HCT 34.3 % (37.2-46.3); HGB 10.8 g/dL (12.0-15.0); Lymphocytes # (M) 16.94 X 10*3/uL (0.90-5.00); MCH 31.9 pg (27.0-32.0); MCHC 31.5 g/dL (32.0-37.0); MCV 101.2 FL (80.0-97.0); Mean Platelet Volume 10.5 FL (9.5-12.2); Metamyelocytes % 1 % (0-0); Monocytes # (M) 1.88 X 10*3/uL (0.20-1.00); Myelocytes % 1 % (0-0); NRBC Per 100 WBC 0 X 10*3/uL (0.00-0.01); Neutrophils # (M) 4.24 X 10*3/uL (1.80-7.70); Neutrophils % (M) 18 %; Platelet Count 377 X 10*3/uL (140-440); Potassium 3.9 mmol/L (3.5-5.5); RBC 3.39 X 10*6/uL (4.10-5.20); RDW 14.8 % (11.5-14.5); Sodium 133 mmol/L (135-145); WBC 23.53 X 10*3/uL (4.50-10.00)
[2024-01-13 10:30] LABS: ALT 20 U/L (8-44); AST 18 U/L (13-35); Albumin 3.5 g/dL (3.8-4.9); Albumin/Globulin Ratio 2.06 Ratio (1.60-3.17); Alkaline Phosphatase 220 U/L (41-126); Globulin 1.7 g/dL (1.6-3.3); Total Bilirubin <0.2 mg/dL (0.3-1.2); Total Protein 5.2 g/dL (6.2-8.2)
--- NOTE | 2024-01-13 16:05 | P.PN ---
Subjective Progress Note Date: 01/13/24 Principal diagnosis: Reason for follow-up is leukocytosis Patient is a 83-year-old female with a past medical history significant for COPD fibromyalgia chronic back pain and this patient presenting to the hospital for worsening back pain has been diagnosed with L1 burst fracture status post operative repair did have elevated white count prompted this consultation. On today's evaluation that is 01/13/2024, Patient is afebrile patient is currently on room air and denies having any shortness of breath, the patient denies any chest pain or cough, the patient denies any nausea vomiting did not have any abdominal pain and mention did have few bowel movements denies any worsening lower back pain. Patient white count is still up at 23.53 however predominantly showing lymphocytes, creatinine 0.5, CRP is down to 1.50 blood culture has been negative Objective - Vital Signs Vital signs: Vital Signs Temp 98.6 F 01/13/24 12:50 Pulse 95 01/13/24 12:50 Resp 14 01/13/24 12:50 BP 115/79 01/13/24 12:50 Pulse Ox 96 01/13/24 12:50 FiO2 Intake & Output 01/12/24 01/13/24 01/13/24 18:59 06:59 18:59 Other: Voiding Method Bedside Commode Bedside Commode # Voids 1 5 # Bowel Movements 1 - Exam GENERAL DESCRIPTION: An elderly female lying in bed in no distress RESPIRATORY SYSTEM: Unlabored breathing , decreased breath sounds at bases HEART: S1 S2 regular rate and rhythm , ABDOMEN: Soft , minimal distention but no tenderness EXTREMITIES: No edema feet - Labs CBC & Chem 7: 01/13/24 04:34 01/13/24 04:34 Labs: Abnormal Lab Results - Last 24 Hours (Table) 01/13/24 01/13/24 Range/Units 04:34 04:34 WBC 23.53 H (4.50-10.00) X 10*3/uL RBC 3.39 L (4.10-5.20) X 10*6/uL Hgb 10.8 L (12.0-15.0) g/dL Hct 34.3 L (37.2-46.3) % MCV 101.2 H (80.0-97.0) FL MCHC 31.5 L (32.0-37.0) g/dL RDW 14.8 H (11.5-14.5) % Lymphocytes # (Manual) 16.94 H (0.90-5.00) X 10*3/uL Monocytes # (Manual) 1.88 H (0.20-1.00) X 10*3/uL Eosinophils # (Manual) 0 L (0.04-0.35) X 10*3/uL Sodium 133 L (135-145) mmol/L Creatinine 0.5 L (0.6-1.5) mg/dL Calcium 8.6 L (8.7-10.3) mg/dL Total Bilirubin <0.2 L (0.3-1.2) mg/dL Alkaline Phosphatase 220 H (41-126) U/L C-Reactive Protein 1.50 H (0.00-0.80) mg/dL Total Protein 5.2 L (6.2-8.2) g/dL Albumin 3.5 L (3.8-4.9) g/dL Microbiology - Last 24 Hours (Table) 01/10/24 16:43 Blood Culture - Preliminary Blood Assessment and Plan (1) Leukocytosis Current Visit: Yes Status: Acute Code(s): D72.829 - ELEVATED WHITE BLOOD CELL COUNT, UNSPECIFIED SNOMED Code(s): 328732002 (2) Constipation Current Visit: Yes Status: Acute Code(s): K59.00 - CONSTIPATION, UNSPECIFIED SNOMED Code(s): 23882840 Plan: 1patient with elevated white count and this patient has been the hospital for almost a week presented with worsening back pain after a fall and has been diagnosed with L1 compression fracture status post operative repair on 01/07/2024 did have elevated white on admission and remains to be elevated patient did not have any fever during this hospital stay, did have mild elevated CRP 2.50 how ever procalcitonin has been normal with chest x-ray right basilar scarring versus atelectasis and the patient has been ruled out for pneumonia with etiology of elevated white count reactive to trauma versus abdominal source medical excluded 2-patient with penicillin allergy limited number of antibiotics safe to use 3-patient did have CT of abdominal pelvis with evidence of severe constipation patient did have relief of constipation with few bowel movement white count is still elevated however did have predominantly lymphocyte with a question of possible hematological malignancy and may benefit from hematology evaluation on empiric Rocephin and Flagyl will give a dose of Diflucan repeat CBC with a.m. lab Dictation was produced using [employer] dictation software. please excuse any grammatical, word or spelling errors.
[2024-01-13] MEDS: FLUCONAZOLE 100 MG TAB PO ONE (17:03)
--- NOTE | 2024-01-13 20:13 | P.PN ---
Subjective 83-year-old female, history of hypothyroidism, COPD/asthma, fibromyalgia, hearing loss, GERD, presents with her daughter after a fall from standing about a week ago she states that she bent over to help her dog and she had increased pain in her back and ever since she has had severe pain in her back which brought her to the emergency department. She states she is unable to ambulate due to the pain. She states that he continues to get worse and worse. She states that her legs are difficult to move secondary to the pain. She states that she continues to have increasing back pain as well as some leg pain. She denies any bowel or bladder issues. She denies any numbness or tingling at this time. She states fairly severe pinpoint tenderness over the midportion of her back At the top of the lumbar spine. X-ray of the lumbar spine completed upon arrival to the ED reveals severe compression deformity L1 of indeterminate age. L1-L2 mild endplate spurring might be present, posterior disc space narrowing at L3-4, L4-5 CT of the lumbar spine reveals compression deformity L1 with no significant posterior wall displacement. Very minimal spondylolisthesis may be present. Disc bulging present L3-4 through L4-5 without spinal canal stenosis. Moderate L4-5 foraminal stenosis 01/06/2024 Patient is seen and evaluated in room at bedside; somewhat quiet; reports he has been recommended surgical intervention by orthopedic surgery Vital signs are reviewed and stable with temperature of 97.4, pulse 90, respirations 17 and blood pressure of 119/79 --patient with burst fracture of lumbar vertebra with bilateral leg weakness and intractable low back pain -- Patient is scheduled for ORIF of L1 with stabilization T12-L1 tomorrow arturo ing -We will continue with current management; PT/OT evaluation after surgical intervention 01/08/2024 Patient is status post open reduction internal fixation of L1 burst fracture with stabilization T12-L2. Today's postop day #1. She is sitting in chair fully awake and oriented, mildly tachypneic with coughing. No chest pain. She is complaining from back pain at surgery site which is expected no weakness or numbness No urinary complaint. Patient constipated. Patient is febrile. Patient has low appetite since admission. Today she could walk with physical therapist Patient states she is allergic to penicillin causing her to pass out. But she states she has taken Levaquin before. Chest x-ray showing left retrocardiac opacity suspicious for pneumonia per radiologist. Levaquin 500 mg started with close monitoring. She has worsening leukocytosis 18,000 going up to 25,000 today. 01/09/2024 Patient breathing is stable, pneumonia has been excluded. However patient is still has leukocytosis coming down slowly 25k down to 22 K Patient today complaining from mild abdominal distention and mild abdominal tenderness in the middle of his abdomen. No rebound tenderness or guarding and her abdomen looks soft. Therefore we are going to order a KUB. Her last bowel movement was Sunday. Patient today feels better, she is sitting up in bed and eating her lunch with no difficulty, she has good appetite She denies chest pain coughing or dyspnea She has mild abdominal pain and tenderness and distention yesterday, KUB showing stool burden increased, however today with abdominal tenderness and distention improved. Patient still constipated and she agrees to the stool softeners and Dulcolax tonight. Patient is afebrile Her WBC count still elevated 22,000, it was 18,000 on admission, unknown baseline. I called her PCP Dr. Serrano he reviewed her records, she has not been having CBC recently, last one was about a year ago and it W BC count was 12.3 therefore we are going to consult infectious disease teamk. Repeat chest x-ray showing right lower lobe near scarring or atelectasis, pulmonary service on the case 01/11/2024 Patient looks comfortable Breathing is okay Abdomen is soft However patient has constipation and CAT scan showing severe stool burden which were contributing to patient leukocytosis, today her WBC still 23,000. There might be some elements of focal infection contributing to the leukocytosis. There is no overt acute diverticulitis. Also there is gallstones with no cholecystitis. Patient currently placed on ceftriaxone and Flagyl Plan to be discharged to inpatient rehab when medically ready hopefully in the next few days Incidental finding on the CAT scan is ovarian cyst 01/12/2024 pt looks lethargic a little bit, no much different from before no abdominal symptoms had two bowel movement pt remains on broad spectrum antibiotics for abdominal infection 01/13/24 Patient clinically is the same, lying in bed no specific complaint, she feels better, even her back pain is better controlled She has almost 2 bowel movement every day. No abdominal pain or distention Although she was placed on ceftriaxone and Flagyl for possible intra-abdominal infection her leukocytosis is not improving and remained stable around 23,000. Because of this we are going to consult hematology service tomorrow However if patient remains clinically stable may be considered for discharge in 24 to 48 hours and she can pursue the workup as outpatient Objective - Vital Signs Vital signs: Vital Signs Temp 98.6 F 01/13/24 12:50 Pulse 95 01/13/24 12:50 Resp 14 01/13/24 12:50 BP 115/79 01/13/24 12:50 Pulse Ox 96 01/13/24 12:50 FiO2 Intake & Output 01/12/24 01/13/24 01/13/24 18:59 06:59 18:59 Other: Voiding Method Bedside Commode Bedside Commode # Voids 1 1 # Bowel Movements 1 - Exam GENERAL: The patient is alert and oriented x3, not in any acute distress. Well developed, well nourished. HEENT: Pupils are round and equally reacting to light. EOMI. No scleral icterus. No conjunctival pallor. Normocephalic, atraumatic. No pharyngeal erythema. No thyromegaly. CARDIOVASCULAR: S1 and S2 present. No murmurs, rubs, or gallops. -PULMONARY: Chest is clear to auscultation, no wheezing , no crackles. Tachypnea with occasional basilar crepitation ABDOMEN: Soft, nontender, nondistended, normoactive bowel sounds. No palpable organomegaly. MUSCULOSKELETAL: No joint swelling or deformity. EXTREMITIES: No cyanosis, clubbing, or pedal edema. NEUROLOGICAL: Gross neurological examination did not reveal any focal deficits. SKIN: No rashes. no petechiae. - Labs CBC & Chem 7: 01/13/24 04:34 01/13/24 04:34 Labs: Abnormal Lab Results - Last 24 Hours (Table) 01/13/24 01/13/24 Range/Units 04:34 04:34 WBC 23.53 H (4.50-10.00) X 10*3/uL RBC 3.39 L (4.10-5.20) X 10*6/uL Hgb 10.8 L (12.0-15.0) g/dL Hct 34.3 L (37.2-46.3) % MCV 101.2 H (80.0-97.0) FL MCHC 31.5 L (32.0-37.0) g/dL RDW 14.8 H (11.5-14.5) % Lymphocytes # (Manual) 16.94 H (0.90-5.00) X 10*3/uL Monocytes # (Manual) 1.88 H (0.20-1.00) X 10*3/uL Eosinophils # (Manual) 0 L (0.04-0.35) X 10*3/uL Sodium 133 L (135-145) mmol/L Creatinine 0.5 L (0.6-1.5) mg/dL Calcium 8.6 L (8.7-10.3) mg/dL Total Bilirubin <0.2 L (0.3-1.2) mg/dL Alkaline Phosphatase 220 H (41-126) U/L C-Reactive Protein 1.50 H (0.00-0.80) mg/dL Total Protein 5.2 L (6.2-8.2) g/dL Albumin 3.5 L (3.8-4.9) g/dL Microbiology - Last 24 Hours (Table) 01/10/24 16:43 Blood Culture - Preliminary Blood Assessment and Plan Assessment: 1. L1 compression fracture, s/p surgery with ORIF of L1 and T12-L2 s tabilization on 01/06. - leukocytosis, could be related to severe constipation , also if no improve ment patient will need further workup and evaluation - Constipation, with mild abdominal pain and distention. - Bilateral leg weakness secondary to above - Hypothyroidism - COPD/asthma not an active issue Plan: Consult hematology service for leukocytosis Start on Flagyl and ceftriaxone. Monitor WBC. Infectious disease consult is appreciated Orthopedic team following closely for her back surgery and perioperative management. Orthopedic team cleared her for discharge Physical therapy PMR evaluation: Plan for IPR Monitor leukocyte level GI prophylaxis Pepcid DVT prophylaxis deferred to surgery team Prognosis is guarded
[2024-01-14 08:40] LABS: HCT 36.9 % (37.2-46.3); HGB 11.9 g/dL (12.0-15.0); MCH 32.5 pg (27.0-32.0); MCHC 32.2 g/dL (32.0-37.0); MCV 100.8 FL (80.0-97.0); Mean Platelet Volume 9.7 FL (9.5-12.2); NRBC Per 100 WBC 0 X 10*3/uL (0.00-0.01); Platelet Count 463 X 10*3/uL (140-440); RBC 3.66 X 10*6/uL (4.10-5.20); RDW 15.1 % (11.5-14.5); WBC 26.44 X 10*3/uL (4.50-10.00)
[2024-01-14 09:59] LABS: ALT 31 U/L (8-44); AST 32 U/L (13-35); Albumin 3.7 g/dL (3.8-4.9); Albumin/Globulin Ratio 1.85 Ratio (1.60-3.17); Alkaline Phosphatase 241 U/L (41-126); BUN/Creat Ratio 24.67 Ratio (12.00-20.00); Blood Urea Nitrogen 14.8 mg/dL (9.0-27.0); Calcium 8.7 mg/dL (8.7-10.3); Chloride 98 mmol/L (96-109); Glucose 106 mg/dL (70-110); Potassium 4.7 mmol/L (3.5-5.5); Sodium 134 mmol/L (135-145); Total Bilirubin 0.3 mg/dL (0.3-1.2); Total Protein 5.7 g/dL (6.2-8.2)
[2024-01-14 12:08] LABS: Basophils # (M) 0 X 10*3/uL (0.00-0.10); Eosinophils # (M) 0.26 X 10*3/uL (0.04-0.35); Lymphocytes # (M) 19.04 X 10*3/uL (0.90-5.00); Monocytes # (M) 1.32 X 10*3/uL (0.20-1.00); Myelocytes % 1 % (0-0); Neutrophils # (M) 5.55 X 10*3/uL (1.80-7.70); Neutrophils % (M) 21 %
--- NOTE | 2024-01-14 13:59 | P.DS ---
Providers Date of admission: 01/04/24 17:33 Attending physician: Farrukh Lopez MD Consults: 01/04/24 17:17 Consult Physician Urgent Consulting Provider: Jc Ovalle Consult Reason/Comments: L1 compression deformity Do you want consulting provider notified?: Yes 01/08/24 10:47 Consult Physician Routine Consulting Provider: Tristin Hernandez Consult Reason/Comments: pna Do you want consulting provider notified?: Yes 01/10/24 07:17 Consult Physician Routine Consulting Provider: Jc Ovalle Consult Reason/Comments: evaluation for IPR Do you want consulting provider notified?: Yes 01/10/24 13:16 Consult Physician Urgent Consulting Provider: Monica Pinto Consult Reason/Comments: leukocytosis Do you want consulting provider notified?: Yes 01/13/24 20:10 Consult Physician Routine Consulting Provider: Devendra Lin Consult Reason/Comments: leukocytosis Do you want consulting provider notified?: Yes, Notify in am Primary care physician: [facility] Course: Diagnoses: - L1 compression fracture, s/p surgery with ORIF of L1 and T12-L2 stabilization on 01/06. - leukocytosis, Rule out hematological malignancy - Constipation, with mild abdominal pain and distention. Improved - Bilateral leg weakness secondary to above - Hypothyroidism - COPD/asthma not an active issue Hospital course: 83-year-old female, history of hypothyroidism, COPD/asthma, fibromyalgia, hearing loss, GERD, presents with her daughter after a fall from standing about a week ago she states that she bent over to help her dog and she had increased pain in her back and ever since she has had severe pain in her back which brought her to the emergency department. CT of the lumbar spine reveals compression deformity L1 with no significant posterior wall displacement. Very minimal spondylolisthesis may be present. Disc bulging present L3-4 through L4-5 without spinal canal stenosis. Moderate L4-5 foraminal stenosis Patient is status post open reduction internal fixation of L1 burst fracture with stabilization T12-L2. Postoperatively patient is doing well and her pain control and cleared by orthopedic team for discharge However patient noticed to have significant leukocytosis 23-26,000, with no obvious cause for lactic no infectious spot found in the chest or abdomen or skin. Patient is afebrile and she did not improve with antibiotic trial with infectious disease team on the case. Hematology team evaluated the patient today and they sent some blood workup, I discussed the case with hematology team they are okay with discharging the patient to rehab at [facility] today and they will follow-up with her for workup results and if further test needed. Patient informed and she verbalized understanding acceptance. On the day of discharge patient denies any other new complaints, no headache dizziness weakness or numbness, no double vision or speech difficulty. No chest pain or dyspnea. No other new complaint Patient was cleared for discharge by all consultants including orthopedic team, cardiology team and nephrology teams Problems and management plan were discussed with the patient and he verbalized understanding and acceptance Patient was found stable and can be discharged home in guarded prognosis however he needs follow-up as an outpatient. Patient was instructed to follow up with PCP Dr. Serrano within one week and patient agrees (I called PCP and discussed the case with him including her leukocytosis and he currently took note of this Patient was instructed to follow-up outpatient with Dr. Maxwell for her hematologi javy workup Patient was instructed to follow-up with Dr. Ramirez on 01/21 and she agrees within 1 week Patient instructed to follow-up with Dr. Pinto in 1 to 2 weeks of discharge and she agrees Patient will follow-up with hematology service at [facility] for her leukocytosis and further workup as needed Physical exam Gen: patient is a AAOx3, no distress CVS: S1-S2, RRR, no murmur Lungs: B/L CTA, no wheezing Abdomen: soft, no distention, no tenderness, positive bowel sounds Extremity: no leg edema or induration -Musculoskeletal: Lower back wound is closed and healing with dressing in place, rest of exam is deferred to surgery team Time spent more than 35 minutes Assessment: Diagnoses: - L1 compression fracture, s/p surgery with ORIF of L1 and T12-L2 stabilization on 01/06. - leukocytosis, Rule out hematological malignancy - Constipation, with mild abdominal pain and distention. Improved - Bilateral leg weakness secondary to above - Hypothyroidism - COPD/asthma not an active issue Hospital course: 83-year-old female, history of hypothyroidism, COPD/asthma, fibromyalgia, hearing loss, GERD, presents with her daughter after a fall from standing about a week ago she states that she bent over to help her dog and she had increased pain in her back and ever since she has had severe pain in her back which brought her to the emergency department. CT of the lumbar spine reveals compression deformity L1 with no significant posterior wall displacement. Very minimal spondylolisthesis may be present. Disc bulging present L3-4 through L4-5 without spinal canal stenosis. Moderate L4-5 foraminal stenosis Patient is status post open reduction internal fixation of L1 burst fracture with stabilization T12-L2. Postoperatively patient is doing well and her pain control and cleared by orthopedic team for discharge However patient noticed to have significant leukocytosis 23-26,000, with no obvious cause for lactic no infectious spot found in the chest or abdomen or skin. Patient is afebrile and she did not improve with antibiotic trial with infectious disease team on the case. Hematology team evaluated the patient today and they sent some blood workup, I discussed the case with hematology team they are okay with discharging the patient to rehab at [facility] today and they will follow-up with her for workup results and if further test needed. Patient informed and she verbalized understanding acceptance. On the day of discharge patient denies any other new complaints, no headache dizziness weakness or numbness, no double vision or speech difficulty. No chest pain or dyspnea. No other new complaint Patient was cleared for discharge by all consultants including orthopedic team, cardiology team and nephrology teams Problems and management plan were discussed with the patient and he verbalized understanding and acceptance Patient was found stable and can be discharged home in guarded prognosis however he needs follow-up as an outpatient. Patient was instructed to follow up with PCP Dr. Serrano within one week and patient agrees (I called PCP and discussed the case with him including her leukocytosis and he currently took note of this Patient was instructed to follow-up outpatient with Dr. Maxwell for her hematological workup Patient was instructed to follow-up with Dr. Ramirez on 01/21 and she agrees within 1 week Patient instructed to follow-up with Dr. Pinto in 1 to 2 weeks of discharge and she agrees Patient will follow-up with hematology service at [facility] for her leuko cytosis and further workup as needed)) Physical exam Gen: patient is a AAOx3, no distress CVS: S1-S2, RRR, no murmur Lungs: B/L CTA, no wheezing Abdomen: soft, no distention, no tenderness, positive bowel sounds Extremity: no leg edema or induration -Musculoskeletal: Lower back wound is closed and healing with dressing in place, rest of exam is deferred to surgery team Time spent more than 35 minutes Patient Condition at Discharge: Stable Plan - Discharge Summary Discharge Rx Participant: Yes New Discharge Prescriptions: No Action Naproxen Sodium [Aleve] 440 mg PO BID Montelukast [Singulair] 10 mg PO DAILY Glycopyrrolate/Formoterol Fum [Bevespi Aerosphere Inhaler] 2 puff INHALATION RT-BID Gabapentin [Neurontin] 300 mg PO TID Acetaminophen [Tylenol Extra Strength] 1,000 mg PO Q6H PRN PRN Reason: Pain Omeprazole [PriLOSEC] 20 mg PO DAILY Dorzolamide HCl/Pf [Dorzolamide 2% Eye Drop] 1 drop LEFT EYE TID Levothyroxine Sodium [Synthroid] 88 mcg PO DAILY Bimatoprost [Lumigan 0.01% Ophth Soln] 1 drop LEFT EYE HS Discharge Medication List Acetaminophen [Tylenol Extra Strength] 1,000 mg PO Q6H PRN 01/04/24 [History] Bimatoprost [Lumigan 0.01% Ophth Soln] 1 drop LEFT EYE HS 01/04/24 [History] Dorzolamide HCl/Pf [Dorzolamide 2% Eye Drop] 1 drop LEFT EYE TID 01/04/24 [History] Gabapentin [Neurontin] 300 mg PO TID 01/04/24 [History] Glycopyrrolate/Formoterol Fum [Bevespi Aerosphere Inhaler] 2 puff INHALATION RT- BID 01/04/24 [History] Levothyroxine Sodium [Synthroid] 88 mcg PO DAILY 01/04/24 [History] Montelukast [Singulair] 10 mg PO DAILY 01/04/24 [History] Naproxen Sodium [Aleve] 440 mg PO BID 01/04/24 [History] Omeprazole [PriLOSEC] 20 mg PO DAILY 01/04/24 [History] Follow up Appointment(s)/Referral(s): Devendra Lin [STAFF PHYSICIAN] - 1 Week Jaret Ramirez DO [Doctor of Osteopathic Medicine] - 01/22/24 10:45 am (With Pao) Pravin Tatum DO [Primary Care Provider] - 1-2 days Monica Pinto MD [STAFF PHYSICIAN] - 2 Weeks (ID doctor) Activity/Diet/Wound Care/Special Instructions: Spine Discharge and Recovery Instructions Medications: See medication list All medication refills should be obtained through your primary care doctor or your clinic spine surgeon. Please discuss prescription refills at your follow up appointment. Do not call the hospital for medication refills. Dressing: Leave your dressing in place for a total of 5 days post operatively. Then you may remove your dressing and leave open to air. Keep the area clean and if not able to keep area clean, then cover with sterile gauze and tape. Showering: You may shower 3 days after your procedure allowing soap and water to run over incision. Do not scrub. Do not soak. Blot dry. Follow up: Please confirm a follow up appointment with your surgeon 3 weeks post operatively. Please make an appointment to follow up with your PCP in 1-2 weeks after surgery for evaluation `3 phase, 3-week plan POST OP WEEKS 1-3 1. Lifting/carrying/pushing/pulling limited to less than 5 pounds. 2. Do not sit for longer than 15 minutes at one time. Get up and walk around. Prolonged sitting is NOT advised. If you lay down, see if you can tolerate laying down on you front (belly side) 3. Walk for periods of 15 minutes = 1 mile but no longer; do it multiple times times each day. 4. Ice your low back after activity. POST OP WEEKS 3-6 1. Lifting limited to less than 20 pounds. 2. Do not sit for longer than 30 minutes at a time. Frequently change positions. Use a sit-to stand workstation or take frequent breaks from sitting if you have returned to work. 3. Walk for 30 minutes each day. If possible, do these three or more times a day POST OP WEEKS 6+ At your 6-week appointment we will give you a physical therapy referral to focus on a core stabilization and strengthening program. You should also work on leg & buttock strengthening, hamstring & quadriceps stretching, and continue a low impact aerobic activity program such as swimming, walking, or riding a stationary bicycle. During the initial 6 weeks after your surgery, you are at the highest risk of re-injuring your spine. You should generally avoid BLTs (bending, lifting and twisting combination motions) and follow the above guidelines to reduce the chance of reinjury. You can anticipate post op appointments in our office at approximately 3 weeks and 6 weeks after your surgery. INCISION CARE: If your incision is not draining you do NOT need to cover it with a dressing. Keep your incision clean, dry and intact. In most cases, we apply skin glue, jessy or sutures to the incision at the time of surgery. This will be like a crust or have the appearance of a scab and will fall off in time on its own. The stitches or jessy need to be removed at 3 weeks post op appointment. You may begin to shower 3 days after surgery (this allows the glue to pisano well). However, please avoid scrubbing the incision site or peeling off any of the skin glue. This will ensure optimal healing of your incision. Also, during this time avoid soaking the incision area in water - this includes swimming pools, hot tubs or baths. No ointments, lotions or oils on the incision until your surgeon allows. Leave jessy, sutures or glue in place. Neurological dysfunction that comes on suddenly can also be a sign of a stroke. Below some common symptoms of a stroke are listed: B - balance difficulty such as sudden onset walking or leaning to one side - NEW E - eye problem such as sudden double vision or trouble seeing on one side - NEW F - Facial weakness or numbness on one side - NEW A - Arm or leg weakness or numbness on one side - NEW S - Slurred speech or difficulty with word finding - NEW T - Time is BRAIN! Call 911 as soon as you recognize these symptoms Diet: Consume a regular diet rich in vegetables and lean protein such as chicken or fish. You should consume in a ratio of approximately 20% fats|40% carbohydrates|40%protein. Vegetables, sweet potatoes, brown rice or quinoa are examples of good carbohydrates. Chips, white bread, cookies and sweets/sugar are examples of bad carbohydrates. Limit your bad carbs, go wild with good carbs. "Life's Simple 7" Guidelines as per [place] [employer] These will help you reclaim your life after surgery and helpdesk administrator in your recovery, keeping in mind your restrictions. (1) Get Active. Physical activity can help people lose weight, control high blood pressure and cholesterol, feel emotionally better, and sleep better. (2) Control Cholesterol. Avoid a diet high in saturated fat, trans fat, & cholesterol. Limit whole milk & cream, ice cream, butter, egg yolks, processed meats (like sausage and hot dogs), and fatty meats. Choose healthy foods that are low in saturated fat, trans fat and cholesterol which include: Fruits and vegetables, fiber rich grain products (like whole grain pasta and brown rice), lean meat such as chicken, fish, nuts, seeds, and legumes. (3) Eat Better. Eat small portions. Shop at the grocery with a list and do not stray from it. Tips for a healthy diet include: Limit sodium intake to less than 1500mg daily, avoid prepackaged, processed, and fast foods, choose a diet rich in fruits, vegetables, and whole grain, high fiber foods, and limit saturated & cholesterol in your diet. (4) Manage Blood Pressure. If you have high blood pressure, you should have a cuff at home so that you can check your blood pressure regularly. Be sure you have a good cuff. An arm one is generally better than a wrist one. Bring the cuff to a doctor's appointment to validate that the measurements that your cuff are taking are accurate. Take your blood pressure twice daily when you are sitting down and relaxing. Record the numbers in a log and bring this log with you to your doctors' appointments. (5) Lose Weight if your BMI is above 25. A healthy BMI is between 19-25. To calculate Your BMI, you may use a Standard BMI Calculator on the NIH BMI website: <www.nhlbi.nih.gov/guidelines/obesity/BMI/bmicalc.htm>. Weigh oneself daily. If you are overweight, set a goal to lose weight. A pound a week loss if needed is a good target. (6) Reduce Blood Sugar. Limit foods and liquids with "added sugars." (Added sugars include sucrose, fructose, glucose, maltose, dextrose, high fructose corn syrup, corn syrup, concentrated fruit juice and honey). (7) Stop Smoking. If you smoke, quitting smoking is one of the best things that you can do for your health. Smoking increases your risk of heart attack, stroke, and peripheral vascular disease, which is a build-up of plaque in your arteries. Please discard all the cigarettes and lighters in your house. Have a plan for what you will do when you have the urge to smoke. Direct and second- hand smoke shortens your life as well as the lives of your family, friends and others around you. For your health and the health of those around you, please consider quitting! Proper Bending Body Mechanics: Maintain a wide stance with one foot slightly in front of the other. Keep your back straight. Bend utilizing the strength in your hips and knees. Do not bend at the waist. Maintain the lifted object at your waist-level close to your body. Avoid lifting weight that causes immediately pain or pain anywhere in the body afterwards. Smoking/Nicotine If there was ever one thing that you could do to increase your overall health, decrease your risk of cardiovascular problems by about 39% the second you make the choice, it is to STOP SMOKING. Your body's most instant gratification is the second you stop smoking. We have all heard the studies, read the articles but it is true, smoking is extremely bad for your overall health, and moreover it is detrimental to your bone health. Nicotine, IN ANY FORM, kills bone cells, prevents your body from healing fractures, and significantly prolongs healing after surgery. In spine surgery specifically, it increases your risk of not healing your bones to create a fusion and increases your risk of having a revision surgery due to this up to 60%. I know it is hard. I know it feels impossible. But there are ways. Take c ontrol of your life. We are here to help you through it. And when you are ready, ask us and we can direct you to help if you desire. Use the START Plan to Quit Smoking (please visit the [employer]org website listed below for more information): S = Set a quit date. Choose a date within the next 2 weeks, so you have enough time to prepare without losing your motivation to quit. If you mainly smoke at work, quit on the weekend, so you have a few days to adjust to the change. T = Tell family, friends, and co-workers that you plan to quit. Let your friends and family in on your plan to quit smoking and tell them you need their support and encouragement to stop. Look for a quit jacky who wants to stop smoking as well. You can help each other get through the rough times. A = Anticipate and plan for the challenges you'll face while quitting. Most people who begin smoking again do so within the first 3 months. You can help yourself make it through by preparing ahead for common challenges, such as nicotine withdrawal and cigarette cravings. R = Remove cigarettes and other tobacco products from your home, car, and work. Throw away all your cigarettes (no emergency pack!), lighters, ashtrays, and matches. Wash your clothes and freshen up anything that smells like smoke. Shampoo your car, clean your drapes and carpet, and steam your furniture. T = Talk to your doctor about getting help to quit. Your doctor can prescribe medication to help with withdrawal and suggest other alternatives. If you can't see a doctor, you can get many products over the counter at your local pharmacy or grocery store, including the nicotine patch, nicotine lozenges, and nicotine gum. Resources for Quitting Smoking: <https://www.[place].gov/documents/[facility]/Qu it_Tobacco_Resources_for_patients_313480_7.pdf> Supplementation: Take recommended dosages of Vitamin D and Calcium to help fortify your bones and help them to heal. See your health maintenance packet for dosages and recommended levels. DVT/VTE prophylaxis: You will be given compression stockings from the hospital. Wear these daily for the first two weeks after surgery. You may take them off at night. You may be prescribed a medication to help thin your blood. Take this as directed. If you are not prescribed this medication, early and frequent ambulation has been shown to be the best prophylaxis to deep vein thrombosis and sequelae related to this event. Discharge Disposition: TRANSFER TO SNF/ECF
[2024-01-14 14:19] VITALS: BP 145/84; PULSE 93; RESP 20; TEMP 98
--- NOTE | 2024-01-14 19:39 | P.CONS ---
History of Present Illness - Reason for Consult Consult date: 01/14/24 leukoytosis Requesting physician: Shawn E Sheet - Chief Complaint fall, vertebral fracture - History of Present Illness Ms. Harris is a 83-year-old female we have been asked to see in regards to leukocytosis. She has been inpt for 10 days. She fell several weeks back, de nied any pain immediately after the fall but then this time went on she noticed increase in her back and back pain as well as some decreased sensation in her bilateral thighs. She came into the hospital she has had surgery. She is going to be going to rehabilitation today. Patient denies any history of leukocytosis or cancers. Denies constitutional symptoms, unusual bleeding or bruising, LAD. Reports she was "in good health" prior to fall. Increased alk phos, increased CRP.This is patient's only admit care at this facility so only able to trend since admit. WBCs were 18.18 on admission they are up to 26.4 today, diff elevation is noted to be in the lymphocytes. Hgb normal with mild anemia noted postop, Hgb 11.9 today. Mild macrocytosis, slight increase since admit. Platele t count normal since admit, slightly elevated today, likely reactive to surgery. Review of Systems 14 point ROS is neg except as stated in HPI Past Medical History Past Medical History: Asthma, Cancer, COPD, Fibromyalgia, Hearing Disorder / Deafness, Thyroid Disorder Additional Past Medical History / Comment(s): Chronic back pain. Hearing aids, Breast cancer, Right side lympnodes removed, History of Any Multi-Drug Resistant Organisms: None Reported Past Surgical History: Breast Surgery, Hysterectomy, Joint Replacement Additional Past Surgical History / Comment(s): Right hip replacement, right side breast cancer and lynphnodes removed, Past Anesthesia/Blood Transfusion Reactions: No Reported Reaction Past Psychological History: No Psychological Hx Reported Smoking Status: Never smoker Past Alcohol Use History: Occasional Past Drug Use History: None Reported Medications and Allergies Home Medications Medication Instructions Recorded Confirmed Type Acetaminophen [Tylenol Extra 1,000 mg PO Q6H PRN 01/04/24 01/04/24 History Strength] Bimatoprost [Lumigan 0.01% Ophth 1 drop LEFT EYE HS 01/04/24 01/04/24 History Soln] Dorzolamide HCl/Pf [Dorzolamide 2% 1 drop LEFT EYE TID 01/04/24 01/04/24 History Eye Drop] Gabapentin [Neurontin] 300 mg PO TID 01/04/24 01/04/24 History Glycopyrrolate/Formoterol Fum 2 puff INHALATION RT-BID 01/04/24 01/04/24 History [Bevespi Aerosphere Inhaler] Levothyroxine Sodium [Synthroid] 88 mcg PO DAILY 01/04/24 01/04/24 History Montelukast [Singulair] 10 mg PO DAILY 01/04/24 01/04/24 History Naproxen Sodium [Aleve] 440 mg PO BID 01/04/24 01/04/24 History Omeprazole [PriLOSEC] 20 mg PO DAILY 01/04/24 01/04/24 History Cyclobenzaprine [Flexeril] 5 mg PO BID tab 01/14/24 Rx Docusate [Colace] 100 mg PO BID #30 cap 01/14/24 Rx Heparin Sodium,Porcine (1 ml) 5,000 unit SQ Q12HR each 01/14/24 Rx [Heparin Sodium] Magnesium Hydroxide [Milk of 2,400 mg PO DAILY PRN #200 ml 01/14/24 Rx Magnesia] Sennosides-Docusate Sodium 2 each PO DAILY #30 tab 01/14/24 Rx [Senokot-S] amLODIPine [Norvasc] 5 mg PO DAILY tab 01/14/24 Rx Allergies Allergy/AdvReac Type Severity Reaction Status Date / Time Penicillins Allergy Syncope Verified 01/04/24 18:11 codeine AdvReac SYNCOPE & Verified 01/07/24 11:55 RASH Physical Exam Vitals: Vital Signs Temp Pulse Resp BP Pulse Ox 01/14/24 08:41 96 01/14/24 06:50 97.8 F 89 17 127/84 98 01/14/24 02:30 97.5 F L 86 18 118/78 94 L 01/13/24 19:51 98.0 F 86 18 126/85 96 01/13/24 12:50 98.6 F 95 14 115/79 96 Intake and Output 01/13/24 01/14/24 01/14/24 22:59 06:59 14:59 Other: # Voids 1 - Constitutional General appearance: average body habitus, cooperative, no acute distress - EENT Eyes: anicteric sclerae, EOMI ENT: hearing grossly normal, normal oropharynx - Neck Neck: no lymphadenopathy - Respiratory Respiratory: bilateral: CTA - Cardiovascular Rhythm: regular Heart sounds: normal: S1, S2 Abnormal Heart Sounds: no systolic murmur, no diastolic murmur, no rub, no S3 Gallop, no S4 Gallop, no click, no other leg Peripheral Edema: bilateral: None - Gastrointestinal General gastrointestinal: no absent bowel sounds, no decreased bowel sounds, no distended, no hepatomegaly, no hyperactive bowel sounds, normal bowel sounds, no organomegaly, no rigid, no scaphoid, soft, no splenomegaly, no tenderness, no umbilical hernia, no ventral hernia - Integumentary Integumentary: normal - Neurologic Neurologic: CNII-XII intact - Musculoskeletal Musculoskeletal: strength equal bilaterally - Psychiatric Psychiatric: A&O x's 3, appropriate affect, intact judgment & insight Results CBC & Chem 7: 01/14/24 05:30 01/14/24 05:30 Labs: Abnormal Lab Results - Last 24 Hours (Table) 01/13/24 01/13/24 01/14/24 Range/Units 04:34 04:34 05:30 WBC 23.53 H 26.44 H (4.50-10.00) X 10*3/uL RBC 3.39 L 3.66 L (4.10-5.20) X 10*6/uL Hgb 10.8 L 11.9 L (12.0-15.0) g/dL Hct 34.3 L 36.9 L (37.2-46.3) % MCV 101.2 H 100.8 H (80.0-97.0) FL MCH 32.5 H (27.0-32.0) pg MCHC 31.5 L (32.0-37.0) g/dL RDW 14.8 H 15.1 H (11.5-14.5) % Plt Count 463 H (140-440) X 10*3/uL Lymphocytes # (Manual) 16.94 H (0.90-5.00) X 10*3/uL Monocytes # (Manual) 1.88 H (0.20-1.00) X 10*3/uL Eosinophils # (Manual) 0 L (0.04-0.35) X 10*3/uL Sodium 133 L (135-145) mmol/L Creatinine 0.5 L (0.6-1.5) mg/dL BUN/Creatinine Ratio (12.00-20.00) Ratio Calcium 8.6 L (8.7-10.3) mg/dL Total Bilirubin <0.2 L (0.3-1.2) mg/dL Alkaline Phosphatase 220 H (41-126) U/L C-Reactive Protein 1.50 H (0.00-0.80) mg/dL Total Protein 5.2 L (6.2-8.2) g/dL Albumin 3.5 L (3.8-4.9) g/dL 01/14/24 Range/Units 05:30 WBC (4.50-10.00) X 10*3/uL RBC (4.10-5.20) X 10*6/uL Hgb (12.0-15.0) g/dL Hct (37.2-46.3) % MCV (80.0-97.0) FL MCH (27.0-32.0) pg MCHC (32.0-37.0) g/dL RDW (11.5-14.5) % Plt Count (140-440) X 10*3/uL Lymphocytes # (Manual) (0.90-5.00) X 10*3/uL Monocytes # (Manual) (0.20-1.00) X 10*3/uL Eosinophils # (Manual) (0.04-0.35) X 10*3/uL Sodium 134 L (135-145) mmol/L Creatinine (0.6-1.5) mg/dL BUN/Creatinine Ratio 24.67 H (12.00-20.00) Ratio Calcium (8.7-10.3) mg/dL Total Bilirubin (0.3-1.2) mg/dL Alkaline Phosphatase 241 H (41-126) U/L C-Reactive Protein 1.20 H (0.00-0.80) mg/dL Total Protein 5.7 L (6.2-8.2) g/dL Albumin 3.7 L (3.8-4.9) g/dL Microbiology - Last 24 Hours (Table) 01/10/24 16:43 Blood Culture - Preliminary Blood Comments: Pathology reports reviewed CT scan - abdomen: report reviewed CT scan - pelvis: report reviewed Assessment and Plan (1) Ovarian cyst, right Status: Acute Code(s): N83.201 - UNSPECIFIED OVARIAN CYST, RIGHT SIDE SNOMED Code(s): 94409631 (2) Leukocytosis Status: Acute Code(s): D72.829 - ELEVATED WHITE BLOOD CELL COUNT, UNSPECIFIED SNOMED Code(s): 917528576 Plan: Leukocytosis, lymphocytosis -Only have this hospitalizations labs to trend back. Mildly elevated WBC and ALC on admit. -Elevation could be from fall, then having surgery. Could be chronically el evated white blood cell count, not sure without previous labs to compare. All of the previous was discussed with patient as well as the possibility of a chronically elevated WBC/chronic leukemia. It was explained that CLL can be monitored for many years and many times may not require treatment. It was recommended the patient that she follow-up with Hematology for recheck of her CBC and additional workup outpt. She was agreeable to the same. -Patient is being discharged to rehab so few labs have been ordered. These will be reviewed with patient when she is seen in the office in a few weeks with additional recommendations to follow. -Nothing otherwise acutely from Heme. Patient seems to be doing well and feels well. -All patient's questions were answered to her satisfaction. Patient is okay to be discharged to rehab from a hematology standpoint after lab work has been obtained. Doctor attests: I performed a history and physical examination of this patient, developed impression and plan of care. Discussed with dictator. I agree with dictators note, documented as a scribe.
== END 2024-01-14 16:07 | DRG 479 ==
LOC: EC 11:46 → 4SSUR 17:33
PROVIDERS: ADMIT Internal Medicine; ATTEND Internal Medicine
PROC: 0QU03JZ Supplement Lumbar Vertebra with Synthetic Substitute, Percutaneous Approach (ICD-10-PCS; 2024-01-07)
PROC: 0QS03ZZ Reposition Lumbar Vertebra, Percutaneous Approach (ICD-10-PCS; principal; 2024-01-07 10:55)
PROC: 0Q903ZX Drainage of Lumbar Vertebra, Percutaneous Approach, Diagnostic (ICD-10-PCS; 2024-01-07 10:55)
DX: S32.011A Stable burst fracture of first lumbar vertebra, initial encounter for closed fracture (principal); D64.9 Anemia, unspecified; D75.89 Other specified diseases of blood and blood-forming organs; E03.9 Hypothyroidism, unspecified; H40.9 Unspecified glaucoma; H54.61 Unqualified visual loss, right eye, normal vision left eye; M40.209 Unspecified kyphosis, site unspecified; M48.061 Spinal stenosis, lumbar region without neurogenic claudication; M79.7 Fibromyalgia; M81.0 Age-related osteoporosis without current pathological fracture; N83.201 Unspecified ovarian cyst, right side; W01.0XXA Fall on same level from slipping, tripping and stumbling without subsequent striking against object, initial encounter; Z96.641 Presence of right artificial hip joint; H91.90 Unspecified hearing loss, unspecified ear; K59.00 Constipation, unspecified; Z88.0 Allergy status to penicillin; Z88.5 Allergy status to narcotic agent; Z79.890 Hormone replacement therapy; Z79.899 Other long term (current) drug therapy; Z85.3 Personal history of malignant neoplasm of breast; Z98.1 Arthrodesis status
CPT/HCPCS: 71045; 72100; 72128; 72131; 74018; 74177; 80048; 80053; 81001; 84145; 85025; 85610; 85652; 85730; 86038; 86140; 86431; 86850; 86900; 86901; 87040; 88307; 88341; 88342; 94640; 94760; 96372; 96374; 99284